=== PATIENT | male | born 1945 | race Caucasian/White ===

== ENCOUNTER → 2018-08-07 11:09 | Outpatient (BNVA) | payer MEDICARE, SELFPAY | PROVIDERS: PCP General Practice; Referring Provider General Practice; Visit Provider Orthopaedic Surgery | DX: M25.531 Pain in right wrist (principal); M19.031 Primary osteoarthritis, right wrist; M25.532 Pain in left wrist; M19.032 Primary osteoarthritis, left wrist | CPT/HCPCS: 99201; 99203 ==

== ENCOUNTER 2018-11-07 09:01 | Outpatient (REF) | payer OTHER, SELFPAY ==
[2018-11-07 13:28] LABS: Bilirubin Negative (Negative); Blood Negative (Negative); Clarity Clear; Glucose Negative (Negative); Ketones Negative (Negative); Leukocyte Esterase Negative (Negative); Nitrite Negative (Negative); Urobilinogen 0.2 EU/dL (Up TO 0.2)
[2018-11-07 13:35] LABS: Abs Immature Grans 0.01 k/cumm (0.0-0.09); Absolute Eosinophil Count 0.27 k/cumm (0.0-0.7); Absolute Lymphocyte Count 1.39 k/cumm (1.2-3.4); Absolute Monocyte Count 0.43 k/cumm (0.11-0.7); Absolute Neutrophil Count 3.11 k/cumm (1.2-6.7); Eosinophils % 5.2; HCT 44.8 % (40.0-50.0); HGB 14.7 g/dL (13.5-17.5); Immature Grans % 0.2; Lymphocytes % 26.7; Mean Corp. HGB Concentration 32.8 g/dL (32.0-36.0); Mean Corpuscular Hemoglobin 29.3 pg (27.0-33.0); Mean Corpuscular Volume 89.2 fL (80-95); Mean Platelet Volume 11.8 fL (8.0-11.0); Monocytes % 8.3; Neutrophils % 59.6; Platelet Count 166 x1000/uL (130-400); RBC 5.02 m/cumm (4.50-6.00); RBC Distribution Width 13.1 % (11.8-14.1); White Blood Cell Count 5.21 k/cumm (4.4-10.8)
[2018-11-07 14:04] LABS: ALT 33 U/L (12-78); AST 22 U/L (15-37); Albumin 3.9 g/dL (3.4-5.0); Alkaline Phosphatase 75 U/L (46-116); Anion Gap 9.4 mmol/L (3-11); BUN 18 mg/dL (7-18); Bilirubin, Total 0.7 mg/dL (0.2-1.0); CO2 26.6 mmol/L (21.0-32.0); CREATININE 1.19 mg/dL (0.70-1.30); Calcium 9.4 mg/dL (8.5-10.1); Chloride 105 mmol/L (98-107); Cholesterol 167 mg/dL (50-200); Glucose 107 mg/dL (70-100); HDL Cholesterol 50 mg/dL (40-60); LDL CHOLESTEROL 97 mg/dL (<100); Potassium 4.1 mmol/L (3.5-5.1); Sodium 141 mmol/L (136-145); TSH (W/Ref FT4) 0.24 uIU/mL (0.358-3.74); Triglyceride 134 mg/dL (30-150)
[2018-11-07 14:20] LABS: FREE T4 1.56 ng/dL (0.76-1.46); Uric Acid 5.5 mg/dL (3.5-7.2)
== END 2018-11-07 09:21 ==
LOC: NCHCN 09:01
PROVIDERS: PCP General Practice; Visit Provider Nurse Practitioner Family
DX: C73 Malignant neoplasm of thyroid gland (principal); C64.9 Malignant neoplasm of unspecified kidney, except renal pelvis; E03.9 Hypothyroidism, unspecified; E79.0 Hyperuricemia without signs of inflammatory arthritis and tophaceous disease; E21.3 Hyperparathyroidism, unspecified; E78.5 Hyperlipidemia, unspecified
CPT/HCPCS: 80053; 80061; 83721; 81003; 84439; 84443; 84550; 85025

== ENCOUNTER 2019-08-05 07:47 | Inpatient (IN) | payer OTHER, SELFPAY ==
[2019-08-05] VITALS (108 sets, daily range): BP systolic 105–152; BP diastolic 62–90; PULSE 48–109; RESP 10–27; TEMP 36.7–36.9; O2SAT 91–99
--- NOTE | 2019-08-05 07:59 | DI.RAD_ITS ---
EXAM: XR CHEST 2V PA LATERAL INDICATION: stroke like symptoms. COMPARISON: No exams were available for comparison TECHNIQUE: 2D digital imaging was performed. FINDINGS: The heart size and pulmonary vasculature are within normal limits. The lungs are clear. No effusion or pneumothorax is identified. There are calcified granulomas in the left upper lobe. Age-appropri ate degenerative changes are present in the spine. IMPRESSION: No acute pulmonary process.
--- NOTE | 2019-08-05 08:00 | NUR.NOTE ---
Nursing Note: pt to CT scan with RN
--- NOTE | 2019-08-05 08:03 | W.ED.GENAD ---
Discharge Plan Disposition Patient Disposition: [facility] INPATIENT Condition: Good Discharge Details Chief Complaint: CVA/TIA Clinical Impression: Stroke, Facial droop, Expressive aphasia Primary Care Provider: Tracey Chapin ED Provider: Sabino Esparza Home Meds and New Rx's Prescriptions: No Action allopurinol 100 mg tablet 100 mg PO BID RF: 0 levothyroxine [Synthroid] 25 mcg tablet 25 mcg PO DAILY RF: 0 aspirin [Adult Aspirin Regimen] 81 mg tablet,delayed release (DR/EC) 81 mg PO DAILY RF: 0 multivitamin [Daily Multi-Vitamin] tablet 1 tab PO DAILY RF: 0 simvastatin 20 mg tablet 20 mg PO QPM RF: 0 vit D3-folic dqdt-[id number]-B12 2,000-800-0.32 unit-mcg-mg Tablet 1 tab PO DAILY RF: 0 Medical Decision Making This is a very pleasant 73-year-old male with a past medical history of high cholesterol, kidney cancer with nephrectomy, thyroid cancer with thyroidectomy, who presents today for evaluation of difficulty finding words. Patient went to bed at 11 PM, woke up at 6:20 AM, at which point he noted to have word finding difficulty. Last known well would be 11 PM. Aside for his word finding difficulty he has no other complaints. Physical exam demonstrates relatively benign exam aside for very minimal right-sided facial droop, forehead sparing. Mild expressive aphasia, he is certainly not at his baseline and has confirmed by who is at bedside. The remainder of his exam is unremarkable, NIH stroke scale score is 2. He is not a TPA candidate secondary to the unknown last known well aside for 11 PM. Signs and symptoms are certainly concerning for intracranial pathology. Inconsistent with subarachnoid hemorrhage as he demonstrates no nuchal rigidity, meningismus, or headache. He is not on any blood thinners. We will get a CT scan to rule out acute infarct, secondary to his nephrectomy we will wait for labs to perform CTA of his head neck. Patient was given 2 aspirin by his prior to arrival. 8:[address] scan results have returned and per virtual radiology there is no evidence of acute bleed or infarct on CT scan. Chest x-ray findings are unremarkable. Of note the patient does state that he has a contrast allergy, it causes itching, and some mild stomach upset but no rash, throat swelling, or other abnormalities. Contrast dose was over 10 years ago, and per patient history appears to be 19 to 20 years ago. Suspect that it was related to osmolarity rather than true allergy. Additionally his symptoms were not anaphylactic. Thankfully though MRI is available at this time. We will do an MRI and MRA of the head neck for further assessment. 11:30 AM MRI and MRA of the brain and neck demonstrates evidence of a small area of restricted diffusion left parietal lobe consistent with an acute versus subacute infarct. No evidence of bleed. We contacted [facility] and have no beds available and have no additional neurology recommendations. Patient symptoms are minimally improved, however still certainly present. I did discuss with family staying locally versus going elsewhere, and at this time they would like to stay locally. I have contacted the hospitalist and discussed the case with Dr. Carbajal, and he agrees with the assessment and plan. Patient will be admitted for echo, neurology consult, and physical therapy. I have extensively reviewed the treatment plan with the patient. I have addressed all patient concerns at this time. I have also discussed the plan with the admitting physician and they agree with the current assessment and plan and have agreed to assume responsibility for the patient. All parties demonstrate verbal understanding and agreement with our assessment and plan at this time. EKG 7: 59 Rate 68, intervals normal, sinus rhythm, no significant ST elevation or depression, no T wave inversion, no evidence of WPW, Brugada, epsilon wave, or Wellens syndrome. COMPARISON: No relevant prior studies available. FINDINGS: Lungs: Left upper lobe granuloma Pleural space: Unremarkable. No pleural effusion. No pneumothorax. Heart/Mediastinum: Unremarkable. No cardiomegaly. Bones/joints: Unremarkable. IMPRESSION: No acute findings Dictated and Authenticated by: Bryan Valles MD. Ordering:PARVEEN Gallo MD FINDINGS: Brain: Normal. No hemorrhage. Unremarkable white matter. No mass effect. Ventricles: Normal. No ventriculomegaly. Bones/joints: Unremarkable. No acute fracture. Sinuses: Visualized sinuses are unremarkable. No fluid levels. Mastoid air cells: Visualized mastoid air cells are well aerated. Soft tissues: Unremarkable. IMPRESSION: No acute intracranial abnormality. ASSESSMENT: ASPECTS ([place] Stroke Program Early CT Score) is 10 FINDINGS: Carotid Arteries: Petrous: Normal. Cavernous: Normal. Cerebral: Normal. Middle Cerebral Arteries: Right: No aneurysm or significant stenosis. Left: No aneurysm or significant stenosis. Anterior Cerebral Arteries: Right: No aneurysm or significant stenosis. Left: No aneurysm or significant stenosis. Posterior cerebral arteries: Right: No aneurysm or significant stenosis. Left: No aneurysm or significant stenosis. Vertebral Arteries: Right: No aneurysm or significant stenosis. Left: No aneurysm or significant stenosis. . Basilar Artery: No aneurysm or significant stenosis. IMPRESSION: Normal MRA examination of the [place]. Ordered By: Sabino Esparza DO FINDINGS: The ventricles and sulci are consistent with the patient's age. There are areas of hyperintense signal seen in the white matter consistent with small vessel ischemic disease. The gradient images show no evidence of intracranial hemorrhage. The diffusion-weighted images show a small area of restricted diffusion in the left parietal lobe. This is consistent with a small acute/subacute infarct. There is no midline shift or mass effect. The ventricles are intact. The basilar cisterns are patent. The pituitary gland has a normal appearance. IMPRESSION: Small area of restricted diffusion in the left parietal lobe consistent with an acute/subacute infarct. Ordered By: Sabino Esparza DO HPI General Date/Time Provider Initiated Documentation: 08/05/19 07:57. HPI Narrative: This is a 73-year-old male with a past medical history of renal cancer with nephrectomy, thyroid cancer with thyroidectomy, gout, high cholesterol, who presents today for evaluation of difficulty speaking. Patient states that when he woke up at 620 this morning when he first started speaking he noticed a significantly difficult time finding his words. He and his denied any slurring of his speech. He denies any recent falls or trauma. He denies any headache, neck pain, fever, chills, chest pain, shortness of breath, visual changes, numbness, tingling, dizziness, or weakness. He denies any history of stroke or DE. He has never had symptoms like this before. Accu-Chek is normal. He went to bed at 11 PM and was acting normally then. He denies any other complaints at this time. No other modifying factors. Related Data Home Medications Medication Instructions Recorded Confirmed allopurinol 100 mg tablet 100 mg PO BID 08/07/18 08/05/19 aspirin 81 mg tablet,delayed 81 mg PO DAILY 08/07/18 08/05/19 release levothyroxine 25 mcg tablet 25 mcg PO DAILY 08/07/18 08/05/19 multivitamin 1 tab PO DAILY 08/07/18 08/05/19 simvastatin 20 mg tablet 20 mg PO QPM 08/07/18 08/05/19 vit D3-folic qozu-W1-J3-B12 1 tab PO DAILY 08/05/19 08/05/19 Allergies Allergy/AdvReac Type Severity Reaction Status Date / Time zolpidem [From Ambien] Allergy Mild Psychosis Unverified 08/05/19 08:51 Iodinated Contrast Media Allergy Itching Unverified 08/05/19 08:51 codeine AdvReac Mild Nausea Unverified 08/05/19 08:51 General Stated Complaint: CVA/TIA CHUYITA: 2 Review of Systems Review of Systems ROS Unobtainable: All systems reviewed & are unremarkable except as noted in HPI and below PFSH Social History Smoking/Tobacco Use Status: Never Alcohol Intake: former Drug use: Never Substance use type: does not use Do you feel safe at home: Yes Do you feel safe in your relationship?: Yes Exam Narrative Exam Narrative: 1.Const: Well-nourished, Well-developed, appearing stated age 2.Eyes: PERRL, no conjunctival injection, and symmetrical lids. 3.ENT: Atraumatic external nose and ears. Moist MM. Neck: Symmetric, trachea midline, No thyromegaly. 4.CVS: +S1/S2, No murmurs or gallops. Peripheral pulses 2+ and equal in all extremities. Brisk capillary refill in all extremities. 5.RESP: Unlabored respiratory effort. Clear to auscultation bilaterally. No wheezes rales or rhonchi 6.GI: Soft, Nontender/Nondistended, No hepatosplenomegaly. No guarding or rebound. 7.MSK: Normocephalic/Atraumatic, Extremities w/o deformity or ttp No cyanosis or clubbing, Normal movement of all extremities 8.Skin: Warm, Dry. No rashes or lesions. 9.Neuro: Cranial nerve exam demonstrates slight minimal right-sided facial droop, forehead sparing. All 6 cardinal planes of vision are fully intact. No evidence of rotatory or vertical nystagmus. The patient demonstrated a normal [id number]-hwhr-illcki, good dexterity. There was no evidence of dysdiadochokinesia. Patient was able to ambulate without difficulty. There was no wide-based gait. Romberg, and bpbd-rs-hgun are both normal on testing. Sensation was intact bilaterally as well as muscle strength bilaterally for all extremities. Patient was able to verbalize butter cup with some difficulty and he was unable to enunciate the hard consonants. Speech is certainly slowed as confirmed by his , he demonstrates no evidence of word salad. Patient is able to hold bilateral arms up for 5 seconds and there is no pronator drift, patient also holds legs up for 10 seconds bilaterally without any drop, sensation intact to light touch in hands and feet bilaterally. 10.Psych: (AAO) x3. Appropriate mood and affect Course Vital Signs Vital signs: Vital Signs Temperature 36.7 C 08/05/19 07:51 Pulse 76 08/05/19 07:51 Respiratory Rate 16 08/05/19 07:51 Blood Pressure 152/81 H 08/05/19 07:51 Pulse Oximetry 98 08/05/19 07:51 Temperature 36.7 C 08/05/19 07:51 Pulse 76 08/05/19 07:51 Respiratory Rate 16 08/05/19 07:51 Blood Pressure 152/81 H 08/05/19 07:51 Blood Pressure Position Sitting 08/05/19 07:51 Pulse Oximetry 98 08/05/19 07:51
[2019-08-05 08:10] LABS: BE (Venous) 6.7 mmol/L (-3-3); HCO3 (Venous) 32 mmol/L (22-28); O2 Sat (Venous) 41 % (70-80); TCO2 (Venous) 28 mmol/L (22-29); pCO2 (Venous) 51 mm/Hg (34-47); pO2 (Venous) 24 mm/Hg (28-44)
--- NOTE | 2019-08-05 08:12 | DI.CT_ITS ---
EXAM: CT HEAD WO CLINICAL HISTORY: stroke like symptoms, R sided deficits w/ speech. TECHNIQUE: Imaging Protocol: Axial computed tomography images with coronal and sagittal reformatted images were created and reviewed COMPARISON: No exams were available for comparison FINDINGS: Ventricles and Extra axial spaces: Normal in size and morphology for the patient's age. Hemorrhage: None. Cerebral parenchyma: Subtle areas of decreased attenuation are present in the white matter most consi stent with small vessel ischemic disease. Midline shift: None. Brainstem/Cerebellum: Normal. Calvarium: Normal. Visualized Paranasal sinuses/Mastoids: Clear. IMPRESSION: No acute intracranial process. DATA REPOSITORY: All CT scans at this facility are submitted to the National Radiology Data Registry (NRDR) Dose Index Registry (DIR) with the [employer] (ACR). RADIATION OPTIMIZATION: All CT scans at this facility use at least one of these dose optimization te chniques: automated exposure control; mA and/or kV adjustment per patient size (includes targeted exa ms where dose is matched to clinical indication); or iterative reconstruction.
[2019-08-05 08:13] LABS: Absolute Eosinophil Count 0.31 k/cumm (0.0-0.7); Absolute Lymphocyte Count 1.52 k/cumm (1.2-3.4); Absolute Monocyte Count 0.49 k/cumm (0.11-0.7); Absolute Neutrophil Count 2.72 k/cumm (1.2-6.7); Eosinophils % 6.2; HCT 46.5 % (40.0-50.0); HGB 15.2 g/dL (13.5-17.5); Lymphocytes % 30.2; Mean Corp. HGB Concentration 32.7 g/dL (32.0-36.0); Mean Corpuscular Volume 88.7 fL (80-95); Mean Platelet Volume 11.4 fL (8.0-11.0); Monocytes % 9.7; Neutrophils % 53.9; Platelet Count 203 x1000/uL (130-400); RBC 5.24 m/cumm (4.50-6.00); RBC Distribution Width 13.6 % (11.8-14.1); White Blood Cell Count 5.04 k/cumm (4.4-10.8)
[2019-08-05 08:23] LABS: Bilirubin Negative (Negative); Blood Negative (Negative); Clarity Clear (Clear); Glucose Negative (Negative); Ketones Trace mg/dL (Negative); Leukocyte Esterase Negative (Negative); Nitrite Negative (Negative)
--- NOTE | 2019-08-05 08:26 | DI.VRAD_ITS ---
PROCEDURE INFORMATION: Exam: CT Head without contrast Exam date and time: 08/05/2019 8:12 AM Clinical history: 73 years old, male; Other: Stroke like symptoms, RT sided deficits w/ speech TECHNIQUE: Imaging protocol: Computed tomography of the head without contrast. Radiation optimization: All CT scans at this facility use at least one of these dose optimization techniques: automated exposure control; mA and/or kV adjustment per patient size (includes targeted exams where dose is matched to clinical indication); or iterative reconstruction. Other technique: STROKE PROTOCOL was implemented. COMPARISON: No relevant prior studies available. FINDINGS: Brain: Normal. No hemorrhage. Unremarkable white matter. No mass effect. Ventricles: Normal. No ventriculomegaly. Bones/joints: Unremarkable. No acute fracture. Sinuses: Visualized sinuses are unremarkable. No fluid levels. Mastoid air cells: Visualized mastoid air cells are well aerated. Soft tissues: Unremarkable. IMPRESSION: No acute intracranial abnormality. ASSESSMENT: ASPECTS ([place] Stroke Program Early CT Score) is 10. Dictated and Authenticated by: Bryan Valles MD. Ordering:PARVEEN Gallo MD
--- NOTE | 2019-08-05 08:26 | DI.VRAD_ITS ---
PROCEDURE INFORMATION: Exam: XR Chest, 2 Views Exam date and time: 08/05/2019 8:12 AM Clinical history: 73 years old, male; Other: Stroke like symptoms TECHNIQUE: Imaging protocol: XR of the chest Views: 2 views. COMPARISON: No relevant prior studies available. FINDINGS: Lungs: Left upper lobe granuloma Pleural space: Unremarkable. No pleural effusion. No pneumothorax. Heart/Mediastinum: Unremarkable. No cardiomegaly. Bones/joints: Unremarkable. IMPRESSION: No acute findings Dictated and Authenticated by: Bryan Valles MD. Ordering:PARVEEN Gallo MD
[2019-08-05 08:28] LABS: Ammonia < 10 umol/L (11-32); PTT Activated 25.1 sec (21.0-31.4); Prothrombin Time 10.5 sec (9.3-11.0)
[2019-08-05 08:35] LABS: Bacteria Negative HPF (Negative); C & S Indicated? No; Casts Negative LPF (Negative); Crystals Negative HPF (Negative); Epithelial Cells Negative HPF (Negative); Mucus Trace (Negative); RBC Negative (0-2); WBC 0-2 HPF (0-5)
[2019-08-05 08:36] LABS: ALT 28 U/L (16-63); AST 18 U/L (15-37); Albumin 4.1 g/dL (3.4-5.0); Alkaline Phosphatase 79 U/L (46-116); Anion Gap 7.7 mmol/L (3-11); BUN 20 mg/dL (7-18); Bilirubin, Total 0.7 mg/dL (0.2-1.0); CO2 29.3 mmol/L (21.0-32.0); CREATININE 1.63 mg/dL (0.70-1.30); Calcium 9.5 mg/dL (8.5-10.1); Chloride 104 mmol/L (98-107); Glucose 110 mg/dL (70-100); Potassium 4.6 mmol/L (3.5-5.1); Sodium 141 mmol/L (136-145); TSH (W/Ref FT4) 0.24 uIU/mL (0.36-3.74); Total Protein 7.6 g/dL (6.4-8.2)
[2019-08-05 08:40] LABS: Troponin I < 0.05 ng/mL (0.00-0.06)
[2019-08-05] MEDS: Normal Saline 500 ML 1000 ML IV (08:40)
--- NOTE | 2019-08-05 08:40 | DI.MRI_ITS ---
EXAM: MR ANGIO NECK WO CLINICAL HISTORY: stroke, right facial and speech deficits. TECHNIQUE: Multiplanar multisequence MRA of the Neck was performed. COMPARISON: No exams were available for comparison FINDINGS: Common Carotid: Right: Normal. Left: Normal. External Carotid: Right: Normal. Left: Normal. Internal Carotid: Right: Normal. Left: Normal. Vertebral Artery: Right: Normal. Left: Normal. The visualized paraspinal soft tissues are unremarkable. IMPRESSION: Normal MRA of the carotids.
--- NOTE | 2019-08-05 08:40 | DI.MRI_ITS ---
EXAM: MR BRAIN WO CLINICAL HISTORY: stroke, right facial and speech deficits. TECHNIQUE: Multiplanar multisequence MRI was performed. COMPARISON: CT HEAD WO from 08/05/2019 FINDINGS: The ventricles and sulci are consistent with the patient's age. There are areas of hyperintense sign al seen in the white matter consistent with small vessel ischemic disease. The gradient images show no evidence of intracranial hemorrhage. The diffusion-weighted images show a small area of restricte d diffusion in the left parietal lobe. This is consistent with a small acute/subacute infarct. Ther e is no midline shift or mass effect. The ventricles are intact. The basilar cisterns are patent. The pituitary gland has a normal appearance. IMPRESSION: Small area of restricted diffusion in the left parietal lobe consistent with an acute/subacute infarc t.
--- NOTE | 2019-08-05 08:40 | DI.MRI_ITS ---
CLINICAL HISTORY: stroke, right facial and speech deficits. TECHNIQUE: Multiplanar multisequence MRA of the brain was performed. IV Contrast: mL of Magnevist contrast administered. COMPARISON: None. FINDINGS: Carotid Arteries: Petrous: Normal. Cavernous: Normal. Cerebral: Normal. Middle Cerebral Arteries: Right: No aneurysm or significant stenosis. Left: No aneurysm or significant stenosis. Anterior Cerebral Arteries: Right: No aneurysm or significant stenosis. Left: No aneurysm or significant stenosis. Posterior cerebral arteries: Right: No aneurysm or significant stenosis. Left: No aneurysm or significant stenosis. Vertebral Arteries: Right: No aneurysm or significant stenosis. Left: No aneurysm or significant stenosis. . Basilar Artery: No aneurysm or significant stenosis. IMPRESSION: Normal MRA examination of the [place] of [place].
[2019-08-05 08:41] LABS: ETHANOL BLOOD < 3.0 mg/dL (<3)
[2019-08-05 09:19] LABS: FREE T4 1.53 ng/dL (0.76-1.46)
[2019-08-05] MEDS: Aspirin 81 MG CHEW (11:04)
--- NOTE | 2019-08-05 13:00 | DI.US_ITS ---
APPROVED REPORT EXAM: Comprehensive 2D, Doppler, and color-flow Echocardiogram Indications: acute CVA Left Ventricle The left ventricle is normal. Left ventricular systolic function is normal. The posterior wall thickn ess is normal. The septum is normal. There is normal LV segmental wall motion. Diastolic function is indeterminate LVEF is 65-70%. Right Ventricle The right ventricle is normal size. The right ventricular systolic function is normal. Atria The left atrium is mildly dilated. The right atrium size is normal. Aortic Valve Aortic valve is calcified. Aortic valve is trileaflet. No hemodynamically significant valvular aortic stenosis. No aortic regurgitation is present. Mitral Valve The mitral valve is normal in structure. Trace mitral regurgitation. Tricuspid Valve The tricuspid valve is normal in structure. Mild to moderate tricuspid regurgitation. TR V-max equals 2.93 m/s. peak gradient 34.4 mmHg Pulmonic Valve The pulmonary valve is normal in structure. There is no pulmonic valvular regurgitation. Great Vessels The aortic root is normal in size. The IVC is normal in size and collapses >50% with inspiration. Pericardium There is no pericardial effusion. 2D Dimensions IVSd 0.9 cm M: 0.6-1.2 PWd 0.9 cm M: 0.6 - 1.2 LVDd 4.6 cm M: 4.2 - 5.9 LVDs 3.0 cm M: 2.5 - 4.0 Aortic Root 3.0 cm M: 3.1 - 3.7 Left Atrium 4.1 cm M: 3.0 - 4.0 LVOT 2.0 cm (M/F) 1.5-2.5 LVEF (Alfredo's) 70.9 % M: 52 - 72 LV Volume Index 32.2 mL/m2 M: 34 - 74 FS 35.0 % LV Diastology E/A Ratio 0.9 MED E' 0.1 (<0.07 m/s) LV E/e MED 12.3 (>14) LAT E' 0.1 (<0.1 m/s) LV E/e LAT 7.0 (>14) Aortic Valve LVOT Peak Tawanda. 1.2 m/s LVOT Peak Gr. 6.0 mmHg LVOT Mean Gr. 3.3 mmHg LVOT VTI 0.3 m AO VTI 0.4 (0.18-0.25 m) ROGER (VTI) 1.1 (2.5-4.5 cm2) Mitral Valve MV A Velocity 0.9 (0.4-1.3 m/s) E/A Ratio 0.9 MV Decel. Time 257.1 (160-240 msec) MV PHT 74.6 msec MVA PHT 3.0 cm2 Tricuspid Valve TR P. Velocity 3.0 m/s TR P. Gradient 36.4 mmHg Conclusion Left Ventricle : The left ventricle is normal. The posterior wall thickness is normal. The septum is normal. Diastolic function is indeterminate Left ventricular systolic function is normal. There is no rmal LV segmental wall motion. LVEF is 65-70%. Right Ventricle : The right ventricle is normal size. The right ventricular systolic function is norm al. Atria : The left atrium is mildly dilated. The right atrium size is normal. Aortic Valve : Aortic valve is calcified. Aortic valve is trileaflet. No aortic regurgitation is pres ent. No hemodynamically significant valvular aortic stenosis. Mitral Valve : The mitral valve is normal in structure. Trace mitral regurgitation. Tricuspid Valve : The tricuspid valve is normal in structure. Mild to moderate tricuspid regurgitatio n. TR V-max equals 2.93 m/s. peak gradient 34.4 mmHg Great Vessels : The aortic root is normal in size. Pericardium : There is no pericardial effusion. There is no obvious cardiac source of emboli to explain CVA.
[2019-08-05] MEDS: Atorvastatin 40 MG TAB PO (15:10)
[2019-08-05] MEDS: Heparin 5,000 UNITS/ML VIAL 5000 UNITS SC (15:10)
[2019-08-05] MEDS: Pantoprazole 40 MG TABCR PO (15:10)
[2019-08-05] MEDS: Clopidogrel 300 MG TAB PO (15:12)
[2019-08-05] MEDS: Normal Saline 1,000 ML 125 ML IV ×2 (15:21→22:49)
--- NOTE | 2019-08-05 15:59 | NCONE_ITS ---
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 Continue with work-up including TTE, A1c, lipid panel, and telemetry. I also recommend 30-day cardiac event monitor at discharge. He should continue the combination of ASA 81mg daily and clopidogrel 75mg daily x30 days at which time he can discontinue aspirin and continue clopidogrel only. His simvastatin should be increase to 40mg HS for a goal LDL <70. Continue permissive hypertension. Unfortunately, we do not have ST services available at this time. He has no dysphagia at this time. We discussed outpatient ST, but given his small infarct, I suspect that he will recover quickly and completely. I will continue to follow along. History of Present Illness History of Present Illness Chief Complaint: stroke Narrative: Handedness: right. HPI: Mr. 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 He went to bed early around 8pm on 08/04/19 as he was unexpectedly tired. He woke up 1-2x during the night to use the bathroom but did not speak or notice anything wrong. When he awoke this am, he noted slurred speech (ER notes indicate aphasia, but he had no difficulty with word finding, fluency, or comprehension). He denies weakness, numbness, tingling, headache. He has no history of palpitations. He presented to the [facility] ER where he was also noted to have subtle right face weakness (this is chronic per viewing old pictures). His BP was slightly elevated at 152/81 (this is exceptionally high for him per his report). His symptoms were concerning for stroke. He was not a candidate for tPA as he was outside of the time window. He was admitted with the following work-up. He was already on aspirin and simvastatin at baseline. He was loaded with clopidogrel 300mg daily. -CTH: no acute. Mild chronic small vessel disease changes. I reviewed these images personally. -MRI brain w/o: acute/subacute small linear infarct in the high left posterior frontal cortex. Mild chronic small vessel disease changes. I reviewed these images personally. -MRA head/neck: atherosclerosis bilateral ICA R>L as well as in the R sigmoid sinus without any significant stenosis. I reviewed these images personally. -TTE: pending -Labs: A1c pending. LEL 97 (Nov 2018). Consults Requesting physician: Azeem Carbajal Review of Systems Review of Systems ROS Unobtainable: All systems reviewed & are unremarkable except as noted in HPI and below PFSH Medical History Dyslipidemia (Acute) Gout (Chronic) History of renal cell carcinoma (Acute) Hypothyroidism (Chronic) Single kidney (Acute) Thyroid ca (Acute) Surgical History History of thyroidectomy (Chronic) Status post nephrectomy (Acute) Family History Mother Stroke Social History Smoking/Tobacco Use Status: Never Alcohol Intake: former Drug use: Never Substance use type: does not use Do you feel safe at home: Yes Do you feel safe in your relationship?: Yes Additional Social history: with 5 children, all grown. 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 No history of tobacco, and admits to social alcohol use only. Visit Medication and Allergies Active Medications Generic Name Dose Route Start Last Admin Trade Name Freq PRN Reason Stop Dose Admin Acetaminophen 325 - 650 mg 08/05/19 11:50 Tylenol PO Q4H PRN PRN Al Hydrox/Mg Hydrox/Simethicone 30 ml 08/05/19 11:50 Mylanta Liquid PO Q2H PRN PRN Albuterol/Ipratropium 3 ml 08/05/19 11:50 Duoneb Updraft UPD Q6H PRN PRN Allopurinol 100 mg 08/05/19 20:00 Zyloprim PO BID PO Aspirin 81 mg 08/06/19 08:30 Ecotrin PO DAILY [facility] Atorvastatin Calcium 40 mg 08/05/19 12:00 08/05/19 15:10 Lipitor PO 40 mg Q24H [facility] Administration Clopidogrel Bisulfate 75 mg 08/06/19 12:00 Plavix PO Q24H [facility] Dimethicone/Zinc Oxide 0 gm 08/05/19 11:50 Jaiden Protect Cream TP PRN PRN Docusate Sodium 100 mg 08/05/19 11:50 Colace PO TID PRN PRN Heparin Sodium (Porcine) 5,000 units 08/05/19 12:00 08/05/19 15:10 SC 5,000 units Q8H [facility] Administration Sodium Chloride 1,000 mls @ 125 mls/hr 08/05/19 12:00 08/05/19 15:21 Saline 1000ml Bag IV 125 mls/hr INFUSION [facility] Administration Levothyroxine Sodium 25 mcg 08/06/19 06:00 Levothroid PO DAILY@0600 [facility] Magnesium Hydroxide 30 ml 08/05/19 11:50 Milk Of Magnesia PO DAILY PRN PRN Multivitamins 1 tab 08/06/19 08:30 PO DAILY [facility] Pantoprazole Sodium 40 mg 08/05/19 12:00 08/05/19 15:10 Protonix PO 40 mg Q24H PO Administration Pt's Own Vit D3- 1 each 08/06/19 08:30 Folic [id number] PO 1 Tab DAILY [facility] Polyethylene Glycol 17 gm 08/05/19 11:50 Miralax PO DAILY PRN PRN Constipation Allergies zolpidem [From Ambien] Allergy (Mild, Unverified 08/05/19 08:51) Psychosis Iodinated Contrast Media Allergy (Unverified 08/05/19 08:51) Itching codeine Adverse Reaction (Mild, Unverified 08/05/19 08:51) Nausea Exam Narrative Exam Narrative: Physical Exam: Gen: Patient of apparent stated age, NAD Head and face: no facial or cranial abnormalities Neck: Supple, no meningismus, no occipital tenderness CV: RRR Resp: CTA B/L Abd: soft, nontender, nondistended Ext: No edema. No clubbing or cyanosis. No bony deformity. Neuro Exam: Language: fluency, naming, repetition, and comprehension intact; Mental Status: AAOx3, current events intact, fund of knowledge intact; Speech: mild dysarthria Cranial nerves: Funduscopy: not performed CN II: visual youssef intact CN III, IV, : extraocular movements intact, no nystagmus, pupils symmetric and reactive to light CN V: face sensation intact to LT and PP CN VII: subtle right nasolabial fold flattening (this is old per previous pictures) CN VIII: hearing intact bilaterally CN IX, X: palate rises symmetrically CN XI: trapezius/SCM 5/5 bilaterally CN XII: protrudes tongue symmetrically Sensory: intact to LT, PP, and joint position in all extremities; absent vibration in the toes and reduced below the knees bilaterally; Motor: bulk and tone intact. Fine motor movements intact bilaterally. No pronator drift. Strength 5/5 throughout including the deltoids, biceps, triceps, wrist extensors, hip flexors, knee flexors, knee extensors, ankle flexors, and ankle extensors. Reflexes: 2+ at the biceps, triceps, and brachioradialis; absent at the patella and achilles tendons bilaterally; toes neutral bilaterally; Coordination: FTN and HTS intact bilaterally Gait: not performed Results Last Vital Signs Temp 36.8 C 08/05/19 13:09 Pulse 59 L 08/05/19 13:09 Resp 16 08/05/19 13:09 BP 124/72 08/05/19 13:09 Pulse Ox 99 08/05/19 13:09 Labs Result diagrams: 08/05/19 08:00 08/05/19 08:00 Labs: Laboratory Results - last 24 hr 08/05/19 08/05/19 08/05/19 08:00 08:00 08:00 WBC 5.04 RBC 5.24 Hgb 15.2 Hct 46.5 MCV 88.7 MCH 29.0 MCHC 32.7 RDW 13.6 Plt Count 203 MPV 11.4 H Immature Gran % 0.0 Neutrophils % 53.9 Lymphocytes % 30.2 Monocytes % 9.7 Eosinophils % 6.2 Basophils % 0.0 Absolute Neutrophils 2.72 Absolute Lymphocytes 1.52 Absolute Monocytes 0.49 Absolute Eosinophils 0.31 Absolute Basophils 0.00 PT INR APTT VBG pH VBG pCO2 VBG pO2 VBG HCO3 VBG Total CO2 VBG O2 Saturation VBG Base Excess Sodium 141 Potassium 4.6 Chloride 104 Carbon Dioxide 29.3 Anion Gap 7.7 BUN 20 H Creatinine 1.63 H Estimated GFR/1.73 m2 41.80 Glucose 110 H Calcium 9.5 Total Bilirubin 0.7 AST 18 ALT 28 Alkaline Phosphatase 79 Ammonia < 10 L Troponin I < 0.05 Total Protein 7.6 Albumin 4.1 TSH 0.24 L Free T4 1.53 H Urine Color Urine Clarity Urine pH Ur Specific [place] Urine Protein Urine Ketones Urine Blood Urine Nitrite Urine Bilirubin Urine Urobilinogen Ur Leukocyte Esterase Urine RBC Urine WBC Ur Epithelial Cells Urine Crystals Urine Bacteria Urine Casts Urine Mucus Ur Culture Indicated? Urine Glucose Ethyl Alcohol < 3.0 08/05/19 08/05/19 08/05/19 08:00 08:00 08:18 WBC RBC Hgb Hct MCV MCH MCHC RDW Plt Count MPV Immature Gran % Neutrophils % Lymphocytes % Monocytes % Eosinophils % Basophils % Absolute Neutrophils Absolute Lymphocytes Absolute Monocytes Absolute Eosinophils Absolute Basophils PT 10.5 INR 1.0 APTT 25.1 VBG pH 7.40 VBG pCO2 51 H VBG pO2 24 L VBG HCO3 32 H VBG Total CO2 28 VBG O2 Saturation 41 L VBG Base Excess 6.7 H Sodium Potassium Chloride Carbon Dioxide Anion Gap BUN Creatinine Estimated GFR/1.73 m2 Glucose Calcium Total Bilirubin AST ALT Alkaline Phosphatase Ammonia Troponin I Total Protein Albumin TSH Free T4 Urine Color Yellow Urine Clarity Clear Urine pH 7.0 Ur Specific [place] 1.020 Urine Protein Trace H Urine Ketones Trace H Urine Blood Negative Urine Nitrite Negative Urine Bilirubin Negative Urine Urobilinogen 1.0 H Ur Leukocyte Esterase Negative Urine RBC Negative Urine WBC 0-2 Ur Epithelial Cells Negative Urine Crystals Negative Urine Bacteria Negative Urine Casts Negative Urine Mucus Trace Ur Culture Indicated? No Urine Glucose Negative Ethyl Alcohol
--- NOTE | 2019-08-05 16:13 | W.PM.HP.N ---
Date of service: 08/05/19 Time of Service: 16:14 Assessment and Plan Assessment and plan (1) CVA (cerebral vascular accident): Status: Chronic Assessment and plan: Evidence of an acute to subacute left parietal lobe infarct, exact duration of symptoms is unknown as the patient was asleep - due to the unknown duration of symptoms thrombolytics were not considered. -Patient was on daily aspirin. Following discussion with neurology will initiate a Plavix load, with plans for DAPT over the course of the next 30 days followed by transition to clopidogrel only. Given need for dual antiplatelet therapy concurrent PPI was started for GI protection. Will conclude work-up with echo and telemetry, and consider outpatient Holter monitoring as well. Official neurology consult has been placed and pending at this time. Will check a.m. hemoglobin A1c and fasting lipids, and change to a high potency statin as well. Aim for permissive hypertension overnight, as the patient's blood pressure normally runs relatively low will start on some IV fluid resuscitation. Monitor symptoms closely. (2) Dyslipidemia: Status: Acute Assessment and plan: Change simvastatin to high-dose atorvastatin, check a.m. labs. (3) HANNAH (acute kidney injury): Status: Acute Assessment and plan: Elevated BUN and creatinine. As above will try IV fluid resuscitation and monitor renal function carefully as the patient has a single kidney status. (4) Single kidney: Status: Acute Assessment and plan: As above. Monitor renal function carefully, avoid nephrotoxins, and renally dose medications when appropriate. (5) Hypothyroidism: Status: Chronic Assessment and plan: Currently on replacement therapy, with mildly low TSH and mildly free T4. Mr. Ortiz has a history of thyroid cancer, status post thyroidectomy. Unsure if this mildly low TSH is a purposeful attempt at suppressive therapy. Will review records in the morning. For now continue current dose of replacement therapy. (6) DVT prophylaxis: Status: Acute Assessment and plan: SC Lovenox, PPI for GI prophylaxis as above. History of Present Illness History of Present Illness Chief Complaint: Difficulty Speaking Narrative: Very pleasant 73-year-old man with a past medical history significant for dyslipidemia, being admitted from [facility] emergency department on 08/05 with a diagnosis of acute to subacute CVA. Mr. Luciano has past medical history significant for dyslipidemia, gout, single kidney status secondary to prior renal cell CA s/p nephrectomy, and thyroid CA s/p thyroidectomy with subsequent hypothyroidism on replacement therapy. The patient is originally from [place], and having lived in [place] for a number of years with summer locally in [place], and has moved here permanently with his spouse. The patient is quite active and reportedly a non-smoker, and went to bed at approximately 11 PM last night in his usual state of health. Upon awakening this morning he noted that he was having difficulty with speaking. He is able to articulate and answer questions appropriately, but he is subjectively significantly less fluent than his baseline, and has difficulty speaking the words that he is thinking. According to his he first reported that he felt like his 'tongue had thickened'. He had no other complaints, and no other focal deficits. Initial work-up in the ED was remarkable for mild elevation in creatinine from his baseline, as well as a mild elevation in BUN. Otherwise his CBC, remainder of BMP, LFTs, and urinalysis were normal. Chest x-ray and initial CT of the head were both without acute abnormalities, but with a follow-up MRI of the brain showing a small area of restricted diffusion in the left parietal lobe, with findings consistent with an acute/subacute infarct. MRI of his brain was normal. The patient was at that time referred for admission for further evaluation and treatment. Review of Systems Review of Systems ROS Unobtainable: All systems reviewed & are unremarkable except as noted in HPI and below [facility] Medical History (Updated 08/05/19 @ 16:31 by Azeem Carbajal MD) Dyslipidemia (Acute) Gout (Chronic) History of renal cell carcinoma (Acute) Hypothyroidism (Chronic) Single kidney (Acute) Status post nephrectomy (Acute) Thyroid ca (Acute) Surgical History (Updated 08/05/19 @ 16:22 by Azeem Carbajal MD) History of thyroidectomy (Chronic) Social History (Updated 08/05/19 @ 16:23 by Azeem Carbajal MD) Smoking/Tobacco Use Status: Never Alcohol Intake: former Drug use: Never Substance use type: does not use Do you feel safe at home: Yes Do you feel safe in your relationship?: Yes Additional Social history: with 5 children, all grown. 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 No history of tobacco, and admits to social alcohol use only. Meds Home Medications and Allergies Home Medications Medication Instructions Recorded Confirmed Type allopurinol 100 mg tablet 100 mg PO BID 08/07/18 08/05/19 History aspirin 81 mg tablet,delayed 81 mg PO DAILY 08/07/18 08/05/19 History release levothyroxine 25 mcg tablet 25 mcg PO DAILY 08/07/18 08/05/19 History multivitamin 1 tab PO DAILY 08/07/18 08/05/19 History simvastatin 20 mg tablet 20 mg PO QPM 08/07/18 08/05/19 History vit D3-folic [id number] 1 tab PO DAILY 08/05/19 08/05/19 History Allergies Allergy/AdvReac Type Severity Reaction Status Date / Time zolpidem [From Ambien] Allergy Mild Psychosis Unverified 08/05/19 08:51 Iodinated Contrast Media Allergy Itching Unverified 08/05/19 08:51 codeine AdvReac Mild Nausea Unverified 08/05/19 08:51 Exam Narrative Exam Narrative: General: Patient appears comfortable, AAOX3, NAD Neck: Supple CV: Regular, nontachycardic, S1S2, No rubs, murmurs, or gallops. Pulmonary: Clear to auscultation bilaterally, no crackles, wheezing, or rhonchi Abdomen: + Bowel Sounds, soft, nontender, nondistended Vascular: No lower extremity edema Neurologic: Speech is slightly slow, but not garbled or incoherent. CN II-XII grossly intact. Strength 5/5 X4. Sensation grossloy intact. No focal deficits. Psych: Normal mood and affect. Results Imaging Chest x-ray: report reviewed Additional studies: Exam(s) a RAD:XR chest 2V PA & lateral EXAM: XR CHEST 2V PA LATERAL INDICATION: stroke like symptoms. COMPARISON: No exams were available for comparison TECHNIQUE: 2D digital imaging was performed. FINDINGS: The heart size and pulmonary vasculature are within normal limits. The lungs are clear. No effusion or pneumothorax is identified. There are calcified granulomas in the left upper lobe. Age-appropriate degenerative changes are present in the spine. IMPRESSION: No acute pulmonary process. -------- Exam(s) a CT:CT head wo EXAM: CT HEAD WO CLINICAL HISTORY: stroke like symptoms, R sided deficits w/ speech. TECHNIQUE: Imaging Protocol: Axial computed tomography images with coronal and sagittal reformatted images were created and reviewed COMPARISON: No exams were available for comparison FINDINGS: Ventricles and Extra axial spaces: Normal in size and morphology for the patient's age. Hemorrhage: None. Cerebral parenchyma: Subtle areas of decreased attenuation are present in the white matter most consistent with small vessel ischemic disease. Midline shift: None. Brainstem/Cerebellum: Normal. Calvarium: Normal. Visualized Paranasal sinuses/Mastoids: Clear. IMPRESSION: No acute intracranial process. -------- Exam(s) a MRI:MR brain wo EXAM: MR BRAIN WO CLINICAL HISTORY: stroke, right facial and speech deficits. TECHNIQUE: Multiplanar multisequence MRI was performed. COMPARISON: CT HEAD WO from 08/05/2019 FINDINGS: The ventricles and sulci are consistent with the patient's age. There are areas of hyperintense signal seen in the white matter consistent with small vessel ischemic disease. The gradient images show no evidence of intracranial hemorrhage. The diffusion-weighted images show a small area of restricted diffusion in the left parietal lobe. This is consistent with a small acute/subacute infarct. There is no midline shift or mass effect. The ventricles are intact. The basilar cisterns are patent. The pituitary gland has a normal appearance. IMPRESSION: Small area of restricted diffusion in the left parietal lobe consistent with an acute/subacute infarct. ------ Exam(s) a MRI:MR angio brain wo CLINICAL HISTORY: stroke, right facial and speech deficits. TECHNIQUE: Multiplanar multisequence MRA of the brain was performed. IV Contrast: mL of Magnevist contrast administered. COMPARISON: None. FINDINGS: Carotid Arteries: Petrous: Normal. Cavernous: Normal. Cerebral: Normal. Middle Cerebral Arteries: Right: No aneurysm or significant stenosis. Left: No aneurysm or significant stenosis. Anterior Cerebral Arteries: Right: No aneurysm or significant stenosis. Left: No aneurysm or significant stenosis. Posterior cerebral arteries: Right: No aneurysm or significant stenosis. Left: No aneurysm or significant stenosis. Vertebral Arteries: Right: No aneurysm or significant stenosis. Left: No aneurysm or significant stenosis. . Basilar Artery: No aneurysm or significant stenosis. -------- IMPRESSION: Normal MRA examination of the [place] of [place]. Exam(s) a MRI:MR angio neck wo EXAM: MR ANGIO NECK WO CLINICAL HISTORY: stroke, right facial and speech deficits. TECHNIQUE: Multiplanar multisequence MRA of the Neck was performed. COMPARISON: No exams were available for comparison FINDINGS: Common Carotid: Right: Normal. Left: Normal. External Carotid: Right: Normal. Left: Normal. Internal Carotid: Right: Normal. Left: Normal. Vertebral Artery: Right: Normal. Left: Normal. The visualized paraspinal soft tissues are unremarkable. IMPRESSION: Normal MRA of the carotids. Labs Result diagrams: 08/05/19 08:00 08/05/19 08:00 Labs: Laboratory Results - last 24 hr 08/05/19 08/05/19 08/05/19 08:00 08:00 08:00 WBC 5.04 RBC 5.24 Hgb 15.2 Hct 46.5 MCV 88.7 MCH 29.0 MCHC 32.7 RDW 13.6 Plt Count 203 MPV 11.4 H Immature Gran % 0.0 Neutrophils % 53.9 Lymphocytes % 30.2 Monocytes % 9.7 Eosinophils % 6.2 Basophils % 0.0 Absolute Neutrophils 2.72 Absolute Lymphocytes 1.52 Absolute Monocytes 0.49 Absolute Eosinophils 0.31 Absolute Basophils 0.00 PT INR APTT VBG pH VBG pCO2 VBG pO2 VBG HCO3 VBG Total CO2 VBG O2 Saturation VBG Base Excess Sodium 141 Potassium 4.6 Chloride 104 Carbon Dioxide 29.3 Anion Gap 7.7 BUN 20 H Creatinine 1.63 H Estimated GFR/1.73 m2 41.80 Glucose 110 H Calcium 9.5 Total Bilirubin 0.7 AST 18 ALT 28 Alkaline Phosphatase 79 Ammonia < 10 L Troponin I < 0.05 Total Protein 7.6 Albumin 4.1 TSH 0.24 L Free T4 1.53 H Urine Color Urine Clarity Urine pH Ur Specific [place] Urine Protein Urine Ketones Urine Blood Urine Nitrite Urine Bilirubin Urine Urobilinogen Ur Leukocyte Esterase Urine RBC Urine WBC Ur Epithelial Cells Urine Crystals Urine Bacteria Urine Casts Urine Mucus Ur Culture Indicated? Urine Glucose Ethyl Alcohol < 3.0 08/05/19 08/05/19 08/05/19 08:00 08:00 08:18 WBC RBC Hgb Hct MCV MCH MCHC RDW Plt Count MPV Immature Gran % Neutrophils % Lymphocytes % Monocytes % Eosinophils % Basophils % Absolute Neutrophils Absolute Lymphocytes Absolute Monocytes Absolute Eosinophils Absolute Basophils PT 10.5 INR 1.0 APTT 25.1 VBG pH 7.40 VBG pCO2 51 H VBG pO2 24 L VBG HCO3 32 H VBG Total CO2 28 VBG O2 Saturation 41 L VBG Base Excess 6.7 H Sodium Potassium Chloride Carbon Dioxide Anion Gap BUN Creatinine Estimated GFR/1.73 m2 Glucose Calcium Total Bilirubin AST ALT Alkaline Phosphatase Ammonia Troponin I Total Protein Albumin TSH Free T4 Urine Color Yellow Urine Clarity Clear Urine pH 7.0 Ur Specific [place] 1.020 Urine Protein Trace H Urine Ketones Trace H Urine Blood Negative Urine Nitrite Negative Urine Bilirubin Negative Urine Urobilinogen 1.0 H Ur Leukocyte Esterase Negative Urine RBC Negative Urine WBC 0-2 Ur Epithelial Cells Negative Urine Crystals Negative Urine Bacteria Negative Urine Casts Negative Urine Mucus Trace Ur Culture Indicated? No Urine Glucose Negative Ethyl Alcohol Last Vital Signs Temp 36.8 C 08/05/19 13:09 Pulse 59 L 08/05/19 13:09 Resp 16 08/05/19 13:09 BP 124/72 08/05/19 13:09 Pulse Ox 99 08/05/19 13:09
[2019-08-06] VITALS (49 sets, daily range): BP systolic 111–146; BP diastolic 51–75; PULSE 53–110; RESP 10–38; TEMP 36.9; O2SAT 94–98
[2019-08-06] MEDS: Heparin 5,000 UNITS/ML VIAL 5000 UNITS SC ×2 (01:08→08:29)
[2019-08-06] MEDS: Levothyroxine 25 MCG TAB PO (06:21)
[2019-08-06] MEDS: Normal Saline 1,000 ML 125 ML IV (06:28)
--- NOTE | 2019-08-06 06:37 | NUR.NOTE ---
Addendum entered by Dennis Sexton 08/06/19 06:42: Pt also told me that he had been using his call gonzalez multiple times throughout the night, and that he heard it beeping, but no one ever came. I apologized to the patient and tested the gonzalez and found it to be working, I showed the pt that it needs to be manually turned off at the wall in his room, and that neither myself nor the other RN working heard the gonzalez or saw the light blinking. Original Note: Pt very upset that we do not carry synthroid, also very upset that his dose is incorrect. I explained the confirmation process that happens in the ER for medications, and that we have a verified dose of 25mcg on file. He states that his dose should be 125mcg. I told the pt he did not have to take the 25mcg of levothyroxine, but he took it anyway. He is not happy and states that he will get to the bottom of this, starting from the top. Nursing Note:
[2019-08-06 07:16] LABS: Absolute Eosinophil Count 0.22 k/cumm (0.0-0.7); Absolute Lymphocyte Count 1.25 k/cumm (1.2-3.4); Absolute Monocyte Count 0.38 k/cumm (0.11-0.7); Absolute Neutrophil Count 1.62 k/cumm (1.2-6.7); Eosinophils % 6.3; HCT 42.2 % (40.0-50.0); HGB 13.6 g/dL (13.5-17.5); Mean Corp. HGB Concentration 32.2 g/dL (32.0-36.0); Mean Corpuscular Hemoglobin 28.8 pg (27.0-33.0); Mean Corpuscular Volume 89.2 fL (80-95); Mean Platelet Volume 11.8 fL (8.0-11.0); Neutrophils % 46.7; Platelet Count 186 x1000/uL (130-400); RBC 4.73 m/cumm (4.50-6.00); RBC Distribution Width 13.8 % (11.8-14.1); White Blood Cell Count 3.47 k/cumm (4.4-10.8)
[2019-08-06 07:32] LABS: Anion Gap 6.5 mmol/L (3-11); BUN 17 mg/dL (7-18); CO2 28.5 mmol/L (21.0-32.0); CREATININE 1.17 mg/dL (0.70-1.30); Calcium 8.4 mg/dL (8.5-10.1); Calculated LDL 80 mg/dL; Chloride 107 mmol/L (98-107); Cholesterol 136 mg/dL (50-200); Glucose 94 mg/dL (70-100); HDL Cholesterol 41 mg/dL (40-60); Magnesium 1.8 mg/dL (1.8-2.4); Potassium 4.1 mmol/L (3.5-5.1); Sodium 142 mmol/L (136-145); Triglyceride 77 mg/dL (30-150)
[2019-08-06 07:52] LABS: Hemoglobin A1C 5.9 % (4.5-6.2)
--- NOTE | 2019-08-06 08:24 | PGE_ITS ---
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 -TTE and A1c still pending. Needs 30 day cardiac event monitoring at discharge. -needs inpatient/outpatient ST eval for dysphagia pending availability (I discussed precautions with him and use of thick-it) -continue ASA 81mg + Plavix 75mg daily x 1month, then Plavix only -ok to d/c on simvastatin 20mg HS based on excellent LDL -he should follow-up in clinic in mid/late September after his travels Addendum: TTE with mildly dilated LA. A1c 5.9. No changes to above plan. Subjective Subjective Interval history since last seen: Stable overnight. Speech improved this am. thinks back to baseline, but Mr. Middleton still notes some difficulty. He noted difficulty swallowing liquids last pm. No problems with solids. Exam Narrative Exam Narrative: Physical Exam: Constitutional: Patient of apparent stated age, well nourished, well developed, no acute distress Neuro: MS/Language/Speech: Alert, oriented, clear language (fluency and comprehension), mild dysarthria; mild hypophonia (baseline) CN: EOMI, visual youssef full, trigeminal sensation intact, subtle R nasolabial fold flattening (chronic), hearing intact Motor: Normal bulk and tone. FMM intact, no pronator drift. Sensation: Intact to light touch throughout Coordination: Finger to nose performed without dysmetria Gait: Deferred Objective Objective Clinical Data: Abnormal lab results 08/05/19 08/05/19 08/05/19 Range/Units 08:00 08:00 08:18 WBC (4.4-10.8) k/cumm MPV (8.0-11.0) fL BUN 20 H (7-18) mg/dL Creatinine 1.63 H (0.70-1.30) mg/dL Glucose 110 H (70-100) mg/dL Calcium (8.5-10.1) mg/dL Ammonia < 10 L (11-32) umol/L TSH 0.24 L (0.36-3.74) uIU/mL Free T4 1.53 H (0.76-1.46) ng/dL Urine Protein Trace H (Negative) mg/dL Urine Ketones Trace H (Negative) mg/dL Urine Urobilinogen 1.0 H (Up TO 0.2) EU/dL 08/06/19 08/06/19 Range/Units 06:20 06:20 WBC 3.47 L D (4.4-10.8) k/cumm MPV 11.8 H (8.0-11.0) fL BUN (7-18) mg/dL Creatinine (0.70-1.30) mg/dL Glucose (70-100) mg/dL Calcium 8.4 L (8.5-10.1) mg/dL Ammonia (11-32) umol/L TSH (0.36-3.74) uIU/mL Free T4 (0.76-1.46) ng/dL Urine Protein (Negative) mg/dL Urine Ketones (Negative) mg/dL Urine Urobilinogen (Up TO 0.2) EU/dL Vital Signs Temperature 36.9 C 08/05/19 20:00 Temperature Source Tympanic 08/05/19 20:00 Pulse 57 L 08/06/19 04:00 Pulse Rhythm Regular 08/06/19 01:13 Pulse 58 L 08/06/19 04:00 Respiratory Rate 14 08/06/19 04:00 Respiratory Effort 08/06/19 01:13 Respiratory Depth Normal 08/06/19 01:13 Respiratory Pattern Normal 08/06/19 01:13 Blood Pressure 126/66 08/06/19 04:00 Blood Pressure Mean 81 08/06/19 04:00 Blood Pressure Position Sitting 08/05/19 13:09 Pulse Oximetry 94 L 08/06/19 04:00 Oxygen Delivery Method Room Air 08/05/19 20:00 Oxygen Flow Rate 0 08/05/19 20:00 Pain Level 0 08/05/19 20:00 Intake & Output 08/05/19 08/05/19 08/06/19 11:59 23:59 11:59 Intake Total 500 / 1075.298 5322.333 / 5430.293 7663 / 1120 Output Total 675 / 675 600 / 600 Balance 500 / 1238.333 738.333 / 1238.333 520 / 520 Weight 79.379 kg 79.379 kg Intake: IV 500 / 1433.333 933.333 / 4142.515 6295 / 1000 Oral 480 / 480 120 / 120 Output: Urine 675 / 675 600 / 600 Other: Urine Color Yellow Yellow Urine Appearance Clear Clear Urine Odor None Normal Comment voided 125cc's of dark yellow urine with sg of 1.020 and small ketones Voiding Methods Urinal Laboratory Results WBC 3.47 k/cumm (4.4-10.8) L D 08/06/19 06:20 RBC 4.73 m/cumm (4.50-6.00) 08/06/19 06:20 Hgb 13.6 g/dL (13.5-17.5) 08/06/19 06:20 Hct 42.2 % (40.0-50.0) 08/06/19 06:20 MCV 89.2 fL (80-95) 08/06/19 06:20 MCH 28.8 pg (27.0-33.0) 08/06/19 06:20 MCHC 32.2 g/dL (32.0-36.0) 08/06/19 06:20 RDW 13.8 % (11.8-14.1) 08/06/19 06:20 Plt Count 186 x1000/uL (130-400) 08/06/19 06:20 MPV 11.8 fL (8.0-11.0) H 08/06/19 06:20 Immature Gran % 0.0 08/06/19 06:20 Neutrophils % 46.7 08/06/19 06:20 Lymphocytes % 36.0 08/06/19 06:20 Monocytes % 11.0 08/06/19 06:20 Eosinophils % 6.3 08/06/19 06:20 Basophils % 0.0 08/06/19 06:20 Absolute Neutrophils 1.62 k/cumm (1.2-6.7) 08/06/19 06:20 Absolute Lymphocytes 1.25 k/cumm (1.2-3.4) 08/06/19 06:20 Absolute Monocytes 0.38 k/cumm (0.11-0.7) 08/06/19 06:20 Absolute Eosinophils 0.22 k/cumm (0.0-0.7) 08/06/19 06:20 Absolute Basophils 0.00 k/cumm (0.0-0.2) 08/06/19 06:20 PT 10.5 sec (9.3-11.0) 08/05/19 08:00 INR 1.0 (0.9-1.1) 08/05/19 08:00 APTT 25.1 sec (21.0-31.4) 08/05/19 08:00 VBG pH 7.40 (7.32-7.43) 08/05/19 08:00 VBG pCO2 51 mm/Hg (34-47) H 08/05/19 08:00 VBG pO2 24 mm/Hg (28-44) L 08/05/19 08:00 VBG HCO3 32 mmol/L (22-28) H 08/05/19 08:00 VBG Total CO2 28 mmol/L (22-29) 08/05/19 08:00 VBG O2 Saturation 41 % (70-80) L 08/05/19 08:00 VBG Base Excess 6.7 mmol/L (-3-3) H 08/05/19 08:00 Sodium 142 mmol/L (136-145) 08/06/19 06:20 Potassium 4.1 mmol/L (3.5-5.1) 08/06/19 06:20 Chloride 107 mmol/L (98-107) 08/06/19 06:20 Carbon Dioxide 28.5 mmol/L (21.0-32.0) 08/06/19 06:20 Anion Gap 6.5 mmol/L (3-11) 08/06/19 06:20 BUN 17 mg/dL (7-18) 08/06/19 06:20 Creatinine 1.17 mg/dL (0.70-1.30) 08/06/19 06:20 Estimated GFR/1.73 m2 >= 60.00 (mL/min/1.73m2) 08/06/19 06:20 Glucose 94 mg/dL (70-100) 08/06/19 06:20 Hemoglobin A1c 5.9 % (4.5-6.2) 08/06/19 06:20 Calcium 8.4 mg/dL (8.5-10.1) L 08/06/19 06:20 Magnesium 1.8 mg/dL (1.8-2.4) 08/06/19 06:20 Total Bilirubin 0.7 mg/dL (0.2-1.0) 08/05/19 08:00 AST 18 U/L (15-37) 08/05/19 08:00 ALT 28 U/L (16-63) 08/05/19 08:00 Alkaline Phosphatase 79 U/L (46-116) 08/05/19 08:00 Ammonia < 10 umol/L (11-32) L 08/05/19 08:00 Troponin I < 0.05 ng/mL (0.00-0.06) 08/05/19 08:00 Total Protein 7.6 g/dL (6.4-8.2) 08/05/19 08:00 Albumin 4.1 g/dL (3.4-5.0) 08/05/19 08:00 Triglycerides 77 mg/dL (30-150) 08/06/19 06:20 Total Cholesterol 136 mg/dL (50-200) 08/06/19 06:20 LDL Cholesterol, Calc 80 mg/dL 08/06/19 06:20 HDL Cholesterol 41 mg/dL (40-60) 08/06/19 06:20 TSH 0.24 uIU/mL (0.36-3.74) L 08/05/19 08:00 Free T4 1.53 ng/dL (0.76-1.46) H 08/05/19 08:00 Urine Color Yellow (Yellow) 08/05/19 08:18 Urine Clarity Clear (Clear) 08/05/19 08:18 Urine pH 7.0 (5-8) 08/05/19 08:18 Ur Specific [place] 1.020 (1.005-1.025) 08/05/19 08:18 Urine Protein Trace mg/dL (Negative) H 08/05/19 08:18 Urine Ketones Trace mg/dL (Negative) H 08/05/19 08:18 Urine Blood Negative (Negative) 08/05/19 08:18 Urine Nitrite Negative (Negative) 08/05/19 08:18 Urine Bilirubin Negative (Negative) 08/05/19 08:18 Urine Urobilinogen 1.0 EU/dL (Up TO 0.2) H 08/05/19 08:18 Ur Leukocyte Esterase Negative (Negative) 08/05/19 08:18 Urine RBC Negative (0-2) 08/05/19 08:18 Urine WBC 0-2 HPF (0-5) 08/05/19 08:18 Ur Epithelial Cells Negative HPF (Negative) 08/05/19 08:18 Urine Crystals Negative HPF (Negative) 08/05/19 08:18 Urine Bacteria Negative HPF (Negative) 08/05/19 08:18 Urine Casts Negative LPF (Negative) 08/05/19 08:18 Urine Mucus Trace (Negative) 08/05/19 08:18 Ur Culture Indicated? No 08/05/19 08:18 Urine Glucose Negative mg/dL (Negative) 08/05/19 08:18 Ethyl Alcohol < 3.0 mg/dL (<3) 08/05/19 08:00
[2019-08-06] MEDS: Aspirin E.C. 81 MG TABEC PO (08:28)
[2019-08-06] MEDS: Allopurinol 100 MG TAB PO (08:28)
[2019-08-06] MEDS: Multivitamin TAB 1 TAB PO (08:28)
--- NOTE | 2019-08-06 08:31 | OT.INIE ---
Occupational Therapy Notes Inpatient Occupational Therapy Evaluation Date: 08/06/19 Referring Doctor:Dr. Carbajal OT Orders: Eval and Tx Precautions: Fall, Standard PATIENT PROFILE/ADMITTING DIAGNOSIS: Pt is a 73 year old male who was admitted to the ICU at [facility] from the ER for a dx of CVA/TIA, dysarthria, dyslipidemia, with facial droop and expressive aphasia. Per pts EMR pt went to sleep around 11pm and when he woke up he was having difficulty speaking so he presented to the ER for further evaluation. Past Medical History: Medical History (Updated 08/05/19 @ 16:31 by Azeem Carbajal MD) Dyslipidemia (Acute) Gout (Chronic) History of renal cell carcinoma (Acute) Hypothyroidism (Chronic) Single kidney (Acute) Status post nephrectomy (Acute) Thyroid ca (Acute) Surgical History (Updated 08/05/19 @ 16:22 by Azeem Carbajal MD) History of thyroidectomy (Chronic) Social History/Home Situation: Pt lives in a private home with his . He reports that he has 3 stairs to enter his home with a railing on (B) sides. His bedroom is on the 2nd floor which he reports that he has no difficulty performing stairs at this time. He does not need any (A) at baseline and is totally (I) with all ADLs/IADLs. He has a tub/shower combination which he reports that he stands in without use of chair/bench. He has grab bars in place and performs his grooming routines standing at the sink. He is (I) with community mobility and drives himself. He is (I) with eating, no difficulty swallowing. Equipment owned/DME: Has a cane from past surgery, pt does not utilize at this time. SUBJECTIVE: Pt was sitting in bed with his at bedside. Pt states that he is feeling better, he notes that he could run a mile right now, but will use the word mile lightly. Pt reports that his only deficit that he can tell is that he cannot articulate words like he used too which is bothersome to him. He reports that functionally he feels that he is back to baseline and is able to do everything that he could do prior. OBJECTIVE: General Observation: IV (R) UE, telemetry, pt is pleasant and able to answer questions appropriately. Mental Status: A&Ox3 Pain: no c/o pain ROM: RUE AROM WNL L UE AROM WNL STRENGTH: RUE 5/5 throughout globally LUE 5/5 throughout globally FUNCTIONAL MOBILITY/ADLS: BATHING Performed prior to OT session Bathing UE Pt and nursing state pt is totally (I) and OT was able to assess functional ROM which is ideal techniques Bathing LE Pt and nursing state pt is totally (I) and OT was able to assess functional ROM which is ideal techniques DRESSING Dressing UE Performed prior to OT session with nursing, nursing reports that pt was (I) don and doffing hospital gown. Dressing LE Sitting in bed (I) with don and doffing (B) socks. GROOMING NT with OT present however per nursing pt (I) brushed his own teeth and has functional ROM/strength necessary to do so. TOILETING NT EATING (I) sitting in bed BALANCE: Static sitting Normal Dynamic Sitting Normal Static Standing NT Dynamic Standing NT SPECIAL TESTS: Daily Activity Limitations Standardized Measure [facility] AM -PAC ?6 clicks? Daily Activity Inpatient Short Form: Raw score: 24 Standardized score: 57.54 CMS score: 0.00% INFORMED CONSENT/EDUCATION: Pt instructed in purpose of OT Consult and plan of care. ASSESSMENT: Patient is a 73-year-old male referred to occupational therapy services with diagnosis of CVA/TIA, dysarthria, dyslipidemia with facial droop and expressive aphasia. OT went to see pt and perform consult in which pt was able to demonstrate (I) in his ADL/IADL routines. Functionally he is 5/5 UE strength with ROM WNL and able to perform functional activities without vc or (A) provided. Pt and OT discuss pts baseline level of function in which pt is presenting at his baseline in terms of ADLs/IADLs at this time. OT does recommend that pt return home when medically cleared per MD. OT does not anticipate any DME needs at this time. AMPAC score 24, CMS score 0.00% Patient is assessed as a Low 16943 complexity based on the following: History: See Above Examination: See Functional limitations as listed as listed above Presentation: Evolving Decision Making: AMPAC score 24, CMS score 0.00% GOALS N/A PLAN OF CARE/TREATMENT PLAN: Discharge pt from skilled OT services. DISCHARGE RECOMMENDATIONS Home when medically cleared per MD. TREATMENT TIME/MINUTES/CODES 18956, 20 minutes (08:10) Olive Kennedy, OTR/L [facility]
--- NOTE | 2019-08-06 11:02 | DSE_ITS ---
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: Status: Acute (2) Dysarthria: Status: Acute Discharge Plan Disposition Patient Disposition: HOME Condition: Stable Discharge Details Chief Complaint: CVA/TIA Clinical Impression: Stroke, Facial droop, Expressive aphasia Reason For Visit: ACUTE CVA Admit Date/Time: 08/05/19 11:50 Admit Provider: Azeem Carbajal Attending Provider: Azeem Carbajal Primary Care Provider: Tracey Chapin ED Provider: Sabino Esparza Hospital Course Hospital Course: Chief Complaint: Dysarthria, Dysphagia HPI: Very pleasant 73-year-old man with a past medical history significant for dyslipidemia, admitted from [facility] emergency department on 08/05 with a diagnosis of acute to subacute CVA. Mr. Luciano has a Past Medical History significant for dyslipidemia, gout, single kidney status secondary to prior renal cell CA s/p nephrectomy, and Thyroid Ca s/p thyroidectomy with subsequent hypothyroidism on replacement therapy. The patient is originally from [place], and lived in [place] for a number of years with brizuela spent locally in [place], prior to moving here permanently with his spouse. He went to bed at approximately 11 PM last night in his usual state of health. Upon awakening on the morning of admission he noted that he was having difficulty with speaking. He was able to speak and answer questions appropriately, but was significantly less fluent and articulate than his baseline. According to his he reported that he felt like his 'tongue had thickened'. He had no other complaints, and no other focal deficits. Initial work-up in the ED was remarkable for mild elevation in creatinine from his baseline, as well as a mild elevation in BUN. Otherwise his CBC, remainder of BMP, LFTs, and urinalysis were normal. Chest x-ray and initial CT of the head were both without acute abnormalities, but with a follow- up MRI of the brain showing a small area of restricted diffusion in the left parietal lobe, with findings consistent with an acute/subacute infarct. MRA of his brain was normal. The patient was at that time referred for admission for further evaluation and treatment. Hospital Course: (1) CVA (cerebral vascular accident): Evidence of an acute to subacute left parietal lobe infarct, exact duration of symptoms unknown as the patient was asleep - due to the unknown duration of symptoms thrombolytics were not considered. Findings consistent with CVA likely secondary to Small Vessel Disease. - Patient was on daily aspirin. Will be discharged on DAPT over the course of the next 30 days, followed by transition to clopidogrel only. - Given need for dual antiplatelet therapy, concurrent PPI was started for GI protection. - Telemetry without arrhythmias, and ECHO essentially normal. Will discharge with a [address], and outpatient Neurology follow-up. - HgA1C 5.9%, and LDL 80. Continue Statin therapy. - Unfortunately there is NO availability of speech therapy either in the [facility] or locally. Case Management is actively searching for a close and timely speech follow-up. Currently appears subjectively improved. Discussed thickened liquids. (2) Dyslipidemia: Given LDL and lipid profile plan on continuation of current dose Simvastatin. (3) HANNAH (acute kidney injury): Resolved with hydration. (4) Single kidney: Following nephrectomy for RCCa. HANNAH resolved. (5) Hypothyroidism: Currently on replacement therapy, with mildly low TSH and mildly free T4. Mr. Ortiz has a history of thyroid cancer, s/p thyroidectomy. Unsure if this mildly low TSH is a purposeful attempt at suppressive therapy or slight overreplacement. Recommend follow-up with PCP after discharge. For now continue current dose of replacement therapy. Home Meds and New Rx's Prescriptions: New clopidogrel [Plavix] 75 mg Tablet 75 mg PO Q24H Qty: 0 RF: 0 pantoprazole 40 mg Tablet,Delayed Release (Dr/Ec) 40 mg PO Q24H Qty: 0 RF: 0 Continued allopurinol 100 mg tablet 100 mg PO BID RF: 0 levothyroxine [Synthroid] 25 mcg tablet 175 mcg PO DAILY RF: 0 aspirin [Adult Aspirin Regimen] 81 mg tablet,delayed release (DR/EC) 81 mg PO DAILY RF: 0 multivitamin [Daily Multi-Vitamin] tablet 1 tab PO DAILY RF: 0 simvastatin 20 mg tablet 20 mg PO QPM RF: 0 vit D3-folic nuir-T8-R7-B12 2,000-800-0.32 unit-mcg-mg Tablet 1 tab PO DAILY RF: 0 Discharge Instructions Instructions: Ischemic Stroke (DC), Ischemic Stroke (GEN) Additional Instructions: Please see your PCP within 1 week, and Neurology with Dr. Van Stratten by mid to late September. Please see a local speech therapist as soon as able. Activity:: No Strenuous Activity Equipment/Supplies:: No Equipment Needed Diet:: Heart Healthy, low cholesterol Discharge Orders Discharge Orders: Discharge Order (Routine); Ordered 08/06/19 Ordered By: Azeem Carbajal DS: Summary Status at Discharge Functional status at discharge: independent ambulation Overall status at discharge: patient is back to baseline Mental Status: mental status grossly normal Speech and Movement: speech and movement normal Mood: congruent mood Affect: normal affect Exam Psych Mental Status: mental status grossly normal Speech and Movement: speech and movement normal Mood: congruent mood Affect: normal affect DS: Data Vitals/I&O Vitals and I&O: Vital Signs Temperature 36.9 C 08/06/19 07:44 Temperature Source Temporal Artery Scan 08/06/19 07:44 Pulse 54 L 08/06/19 07:44 Pulse Rhythm Regular 08/06/19 08:02 Pulse 64 08/06/19 10:10 Respiratory Rate 15 08/06/19 10:10 Respiratory Effort 08/06/19 08:02 Respiratory Depth Normal 08/06/19 08:02 Respiratory Pattern Normal 08/06/19 08:02 Blood Pressure 146/72 H 08/06/19 07:44 Blood Pressure Mean 91 08/06/19 07:44 Blood Pressure Position Sitting 08/05/19 13:09 Pulse Oximetry 97 08/06/19 07:44 Oxygen Delivery Method Room Air 08/06/19 07:44 Oxygen Flow Rate 0 08/06/19 07:44 Pain Level 0 08/06/19 07:44 Intake & Output 08/05/19 08/05/19 08/06/19 11:59 23:59 11:59 Intake Total 500 / 2444.035 7345.333 / 3235.391 4414 / 1480 Output Total 675 / 675 600 / 600 Balance 500 / 1238.333 738.333 / 1238.333 880 / 880 Weight 79.379 kg 79.379 kg Intake: IV 500 / 1433.333 933.333 / 7602.839 5078 / 1000 Oral 480 / 480 480 / 480 Output: Urine 675 / 675 600 / 600 Other: Urine Color Yellow Yellow Urine Appearance Clear Clear Urine Odor None Normal Comment voided 125cc's of dark yellow urine with sg of 1.020 and small ketones Voiding Methods Urinal Data Completed and Pending Completed studies during hospitalization [Text1]: Exam(s) a RAD:XR chest 2V PA & lateral EXAM: XR CHEST 2V PA LATERAL INDICATION: stroke like symptoms. COMPARISON: No exams were available for comparison TECHNIQUE: 2D digital imaging was performed. FINDINGS: The heart size and pulmonary vasculature are within normal limits. The lungs are clear. No effusion or pneumothorax is identified. There are calcified granulomas in the left upper lobe. Age-appropriate degenerative changes are present in the spine. IMPRESSION: No acute pulmonary process. --------- Exam(s) a CT:CT head wo EXAM: CT HEAD WO CLINICAL HISTORY: stroke like symptoms, R sided deficits w/ speech. TECHNIQUE: Imaging Protocol: Axial computed tomography images with coronal and sagittal reformatted images were created and reviewed COMPARISON: No exams were available for comparison FINDINGS: Ventricles and Extra axial spaces: Normal in size and morphology for the patient's age. Hemorrhage: None. Cerebral parenchyma: Subtle areas of decreased attenuation are present in the white matter most consistent with small vessel ischemic disease. Midline shift: None. Brainstem/Cerebellum: Normal. Calvarium: Normal. Visualized Paranasal sinuses/Mastoids: Clear. IMPRESSION: No acute intracranial process. Exam(s) a MRI:MR brain wo EXAM: MR BRAIN WO CLINICAL HISTORY: stroke, right facial and speech deficits. TECHNIQUE: Multiplanar multisequence MRI was performed. COMPARISON: CT HEAD WO from 08/05/2019 FINDINGS: The ventricles and sulci are consistent with the patient's age. There are areas of hyperintense signal seen in the white matter consistent with small vessel ischemic disease. The gradient images show no evidence of intracranial hemorrhage. The diffusion-weighted images show a small area of restricted diffusion in the left parietal lobe. This is consistent with a small acute/subacute infarct. There is no midline shift or mass effect. The ventricles are intact. The basilar cisterns are patent. The pituitary gland has a normal appearance. IMPRESSION: Small area of restricted diffusion in the left parietal lobe consistent with an acute/subacute infarct. --------- Exam(s) a MRI:MR angio brain wo CLINICAL HISTORY: stroke, right facial and speech deficits. TECHNIQUE: Multiplanar multisequence MRA of the brain was performed. IV Contrast: mL of Magnevist contrast administered. COMPARISON: None. FINDINGS: Carotid Arteries: Petrous: Normal. Cavernous: Normal. Cerebral: Normal. Middle Cerebral Arteries: Right: No aneurysm or significant stenosis. Left: No aneurysm or significant stenosis. Anterior Cerebral Arteries: Right: No aneurysm or significant stenosis. Left: No aneurysm or significant stenosis. Posterior cerebral arteries: Right: No aneurysm or significant stenosis. Left: No aneurysm or significant stenosis. Vertebral Arteries: Right: No aneurysm or significant stenosis. Left: No aneurysm or significant stenosis. . Basilar Artery: No aneurysm or significant stenosis. IMPRESSION: Normal MRA examination of the [place] of [place]. -------- Exam(s) a MRI:MR angio neck wo EXAM: MR ANGIO NECK WO CLINICAL HISTORY: stroke, right facial and speech deficits. TECHNIQUE: Multiplanar multisequence MRA of the Neck was performed. COMPARISON: No exams were available for comparison FINDINGS: Common Carotid: Right: Normal. Left: Normal. External Carotid: Right: Normal. Left: Normal. Internal Carotid: Right: Normal. Left: Normal. Vertebral Artery: Right: Normal. Left: Normal. The visualized paraspinal soft tissues are unremarkable. IMPRESSION: Normal MRA of the carotids. -------- xam(s) a US:US echocardiogram APPROVED REPORT EXAM: Comprehensive 2D, Doppler, and color-flow Echocardiogram Indications: acute CVA Left Ventricle The left ventricle is normal. Left ventricular systolic function is normal. The posterior wall thickness is normal. The septum is normal. There is normal LV segmental wall motion. Diastolic function is indeterminate LVEF is 65-70%. Right Ventricle The right ventricle is normal size. The right ventricular systolic function is normal. Atria The left atrium is mildly dilated. The right atrium size is normal. Aortic Valve Aortic valve is calcified. Aortic valve is trileaflet. No hemodynamically significant valvular aortic stenosis. No aortic regurgitation is present. Mitral Valve The mitral valve is normal in structure. Trace mitral regurgitation. Tricuspid Valve The tricuspid valve is normal in structure. Mild to moderate tricuspid regurgitation. TR V-max equals 2.93 m/s. peak gradient 34.4 mmHg Pulmonic Valve The pulmonary valve is normal in structure. There is no pulmonic valvular regurgitation. Great Vessels The aortic root is normal in size. The IVC is normal in size and collapses >50% with inspiration. Pericardium There is no pericardial effusion. 2D Dimensions IVSd 0.9 cm M: 0.6-1.2 PWd 0.9 cm M: 0.6 - 1.2 LVDd 4.6 cm M: 4.2 - 5.9 LVDs 3.0 cm M: 2.5 - 4.0 Aortic Root 3.0 cm M: 3.1 - 3.7 Left Atrium 4.1 cm M: 3.0 - 4.0 LVOT 2.0 cm (M/F) 1.5-2.5 LVEF (Alfredo's) 70.9 % M: 52 - 72 LV Volume Index 32.2 mL/m2 M: 34 - 74 FS 35.0 % LV Diastology E/A Ratio 0.9 MED E' 0.1 (<0.07 m/s) LV E/e MED 12.3 (>14) LAT E' 0.1 (<0.1 m/s) LV E/e LAT 7.0 (>14) Aortic Valve LVOT Peak Tawanda. 1.2 m/s LVOT Peak Gr. 6.0 mmHg LVOT Mean Gr. 3.3 mmHg LVOT VTI 0.3 m AO VTI 0.4 (0.18-0.25 m) ROGER (VTI) 1.1 (2.5-4.5 cm2) Mitral Valve MV A Velocity 0.9 (0.4-1.3 m/s) E/A Ratio 0.9 MV Decel. Time 257.1 (160-240 msec) MV PHT 74.6 msec MVA PHT 3.0 cm2 Tricuspid Valve TR P. Velocity 3.0 m/s TR P. Gradient 36.4 mmHg Conclusion Left Ventricle : The left ventricle is normal. The posterior wall thickness is normal. The septum is normal. Diastolic function is indeterminate Left ventricular systolic function is normal. There is normal LV segmental wall motion. LVEF is 65-70%. Right Ventricle : The right ventricle is normal size. The right ventricular systolic function is normal. Atria : The left atrium is mildly dilated. The right atrium size is normal. Aortic Valve : Aortic valve is calcified. Aortic valve is trileaflet. No aortic regurgitation is present. No hemodynamically significant valvular aortic stenosis. Mitral Valve : The mitral valve is normal in structure. Trace mitral regurgitation. Tricuspid Valve : The tricuspid valve is normal in structure. Mild to moderate tricuspid regurgitation. TR V-max equals 2.93 m/s. peak gradient 34.4 mmHg Great Vessels : The aortic root is normal in size. Pericardium : There is no pericardial effusion. There is no obvious cardiac source of emboli to explain CVA. Labs on day of discharge: Labs from last 24 hours 08/06/19 08/06/19 08/06/19 06:20 06:20 06:20 WBC 3.47 L D RBC 4.73 Hgb 13.6 Hct 42.2 MCV 89.2 MCH 28.8 MCHC 32.2 RDW 13.8 Plt Count 186 MPV 11.8 H Immature Gran % 0.0 Neutrophils % 46.7 Lymphocytes % 36.0 Monocytes % 11.0 Eosinophils % 6.3 Basophils % 0.0 Absolute Neutrophils 1.62 Absolute Lymphocytes 1.25 Absolute Monocytes 0.38 Absolute Eosinophils 0.22 Absolute Basophils 0.00 Sodium 142 Potassium 4.1 Chloride 107 Carbon Dioxide 28.5 Anion Gap 6.5 BUN 17 Creatinine 1.17 Estimated GFR/1.73 m2 >= 60.00 Glucose 94 Hemoglobin A1c 5.9 Calcium 8.4 L Magnesium 1.8 Triglycerides 77 Total Cholesterol 136 LDL Cholesterol, Calc 80 HDL Cholesterol 41 [facility] Medical History Dyslipidemia (Acute) Exposure to uranium (Acute) Gout (Chronic) History of renal cell carcinoma (Acute) Hypothyroidism (Chronic) Single kidney (Acute) Thyroid ca (Acute) Surgical History History of thyroidectomy (Chronic) Status post nephrectomy (Acute) Family History Mother Stroke Social History Smoking/Tobacco Use Status: Never Alcohol Intake: former Drug use: Never Substance use type: does not use Do you feel safe at home: Yes Do you feel safe in your relationship?: Yes Additional Social history: with 5 children, all grown. 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 No history of tobacco, and admits to social alcohol use only.
--- NOTE | 2019-08-06 11:25 | PDOC.CMIN ---
Care Management Initial Assess REASON FOR HOSPITALIZATION:: acute CVA PAST MEDICAL HISTORY/PAST SURGICAL HISTORY:: Medical: dyslipidemia, gout, H/O renal cell carcinoma, hypothyroidism, single kidney, thyroid Ca. Surgical: thyroidectomy, nephrectomy. PREVIOUS FUNCTIONAL STATUS/SOCIAL/FAMILY SUPPORTS:: He lives with his in thier home in [place]. They moved to [place] 2 yrs ago from [place] and really enjoy it here. He is usually active and independent. They hav 5 adult children who live throughout the country. 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 CURRENT FUNCTIONAL STATUS:: He is lying in bed in ICU. is present. He easily engages in discussion re plans. There is some notice of speech difficulty, but he can be understood. ADVANCE DIRECTIVES:: He does not have advance directive but has the information at home. Has patient been provided with information about the portal?: Yes Did the patient sign up for the portal?: No (already done) CODE STATUS:: Full Code INSURANCE COVERAGE / FINANCIAL ISSUES:: Medicare advantage plan through [facility] CURRENT HOME/COMMUNITY SERVICES/EQUIPMENT:: No services or equipment used. PRIMARY CARE PHYSICIAN:: Tracey Chapin MD POTENTIAL DISCHARGE NEEDS:: He needs OP ST evaluation and treatment. Since [facility] does not have this service currently, have tried contact with 3 providers in [facility], only one of which is still in area (Cora Quigley) and she could not see for 3-4 weeks. Also called [facility] and was able to get appt for 09/02/19, but patient will not be available that date as he plans to be in [place] then. Have reached out to [facility] and am awaiting call back. He will need follow-up with his PCP as directed. PATIENT/FAMILY EDUCATION NEEDS:: Review d/c instructions re meds and activity levels, discuss Ask me Now questions. ANTICIPATED BARRIERS TO DISCHARGE:: Only barrier to follow-up is availability of speech therapy services. No other problems identified. TRANSPORTATION:: via car with his . PLAN:: d/c home as per with follow-up with PCP as directed. CM will continue to try to set up OP ST evaluation.
--- NOTE | 2019-08-06 11:42 | PT.INIE ---
Date of service: 08/06/19 Time of Service: 10:15 PT Notes Inpatient Physical Therapy Evaluation Date: 08/06/2019 Referring Doctor: Azeem Carbajal MD PT Orders: PT CONSULT: Limited ability Precautions: Fall. Standard. Activity as tolerated. 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 Patient is diagnosed with CVA involving the left MCA, dysarthria, dyslipidemia and acute kidney injury. PMHX: Medical History (Updated 08/05/19 @ 16:31 by Azeem Carbajal MD) Dyslipidemia (Acute) Gout (Chronic) History of renal cell carcinoma (Acute) Hypothyroidism (Chronic) Single kidney (Acute) Status post nephrectomy (Acute) Thyroid CA (Acute) Surgical History (Updated 08/05/19 @ 16:22 by Azeem Carbajal MD) History of thyroidectomy (Chronic) Social History/Home Situation: Patient lives with in a two-story home in [place], [place] with two steps to enter with a railing on the R side. Equipment Owned/DME: None. Subjective: Patient does not complain of pain or discomfort. He reports trouble speaking and is waiting for an MUNICIPAL FIREFIGHTER consult. He is agreeable to PT and denies headache, lightheadedness, and dizziness. Objective: General Observation: Patient is seen laying supine in bed with HOB elevated with awake overnight monitor and IV in the R UE. Mental Status: Alert and oriented x 4 Pain: 0/10 ROM: Right Lower Extremity: Hip flexion WFL. Hip abduction WFL. Knee flexion WFL. Ankle dorsiflexion WFL. Ankle plantarflexion WFL. Left Lower Extremity: Hip flexion WFL. Hip abduction WFL. Knee flexion WFL. Ankle dorsiflexion WFL. Ankle plantarflexion WFL. Strength: Right Lower Extremity: Hip flexors 5/5. Hip abductors 5/5. Knee flexors 5/5. Knee extensors 5/5. Ankle dorsiflexors 5/5. Ankle plantarflexors 5/5. Left Lower Extremity:Hip flexors 5/5. Hip abductors 5/5. Knee flexors 5/5. Knee extensors 5/5. Ankle dorsiflexors 5/5. Ankle plantarflexors 5/5. Bed Mobility/Transfers: Rolling I Supine to sit I Sit to supine I Sit to stand I Stand to sit I Bed to chair Supervision Chair to bed Supervision Gait: Patient ambulated 150? with supervision and no assistive device demonstrating reciprocal gait pattern with no deviations. Balance: Static Sitting: Normal Dynamic Sitting: Normal Static Standing: Normal Dynamic Standing: Normal Special Tests: Mobility Limitations Standardized Measure [facility] 6 clicks Basic Mobility Inpatient Short Form: Raw Score: 24 [facility] Score: 0% 4-stage Balance Test: Patient completed all 4 stages with no assistance classifying him as low-risk for falls. Informed Consent/Education: Patient instructed in purpose of PT consult and plan of care. Assessment: Patient is a 73 year old male s/p acute left cerebral stroke. He presents with no functional deficits and complains of mild difficulty speaking. He lives with his in a two-story house and is confident in his abilities to function at home. His prognosis is good. Patient presents with clinical signs and symptoms consistent with current/admitting diagnoses. Patient is assessed as a 53627 moderate complexity based on the following: History: Patient is diagnosed with CVA involving the left MCA, dysarthria, dyslipidemia and acute kidney injury. Examination: Only requiring supervision assist for all transfer and ambulation task performance Presentation: Evolving Decision Makin moderate complexity Goals: Goals X1 week 1. Supine-Sit independent 2. Sit-Supine independent 3. Sit-Stand independent 4. Stand-Sit independent 5. Bed-Chair independent 6. Chair-Bed independent 7. Independent gait on level surface with use of least restrictive device for at least 300 feet without report of pain nor dyspnea 8. Independent stair negotiation while holding onto bilateral rails for at least 10 steps without report of pain nor dyspnea 9. Independent with home exercise program 10. Good static and dynamic standing balance/tolerance Plan of Care/Treatment Plan: 1-2x/day, 7 days/week x 1 week. Plan of care has been reviewed with the CORN CUTTER OPERATOR providing the service under Physical Therapy direction. Initiate Physical Therapy intervention for strengthening, bed mobility, transfers, gait, stairs, balance training, use of assistive device. DISCHARGE RECOMMENDATIONS: Patient is to be discharged under the care of his after being medically stable and after all of the above goals have been achieved. No equioment needs at this time. TREATMENT CODE/TIME: 57129 x 30 minutes beginning at 10:15 AM. Thank you very much for this referral. Rich Villagran [facility] With a supervision of: Teressa Moura PT, DPT, CLT [facility]
[2019-08-06] MEDS: Pantoprazole 40 MG TABCR PO (12:10)
[2019-08-06] MEDS: Clopidogrel 75 MG TAB PO (12:11)
--- NOTE | 2019-08-06 12:13 | CMDISCH_ITS ---
LACE Index Scoring Tool - Questions: Length of Stay (in days): 2 Acuity (Admit via E.D.?): Yes Comorbidities: Cerebrovascular Disease, Liver or Renal Disease E.D. Visits: 1 - Answers: Total Score: 11 Risk of Readmission: High Risk Care Management Discharge Reason for Hospitalization: acute CVA Discharge Plan: He is being discharged home with follow-up with PCP. CM has made referrals to [facility] and [facility] for OP ST services with request that they contact patient directly to make appt and patient will decide which appt he will keep. Patient/Family Education Needs: RN to review d/c instuctions re meds and activity levels. Patient able to verbalize reason for hospitalization and how to manage care at home. Services Needed at Discharge: Speech Therapy
--- NOTE | 2019-08-06 14:06 | INDS_ITS ---
Date of service: 08/06/19 Time of Service: 14:07 PT Notes Inpatient Physical Therapy Discharge Summary Dates: 08/06/2019 Dates of Service: 08/06/2019 only Referring Doctor: Azeem Carbajal MD PT Orders: PT CONSULT: Limited ability Precautions: Fall. Standard. Activity as tolerated. 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 Patient is diagnosed with CVA involving the left MCA, dysarthria, dyslipidemia and acute kidney injury. PMHX: Medical History (Updated 08/05/19 @ 16:31 by Azeem Carbajal MD) Dyslipidemia (Acute) Gout (Chronic) History of renal cell carcinoma (Acute) Hypothyroidism (Chronic) Single kidney (Acute) Status post nephrectomy (Acute) Thyroid CA (Acute) Surgical History (Updated 08/05/19 @ 16:22 by Azeem Carbajal MD) History of thyroidectomy (Chronic) Social History/Home Situation: Patient lives with in a two-story home in [place], [place] with two steps to enter with a railing on the R side. Equipment Owned/DME: None. Subjective: Patient is forward to going home this afternoon with . He continues to deny headache, chest pain, and dizziness. Objective: General Observation: Patient is seen laying supine in bed with HOB elevated with sas developer analyst and IV in the R UE. Mental Status: Alert and oriented x 4 ROM: Right Lower Extremity: Hip flexion WFL. Hip abduction WFL. Knee flexion WFL. Ankle dorsiflexion WFL. Ankle plantarflexion WFL. Left Lower Extremity: Hip flexion WFL. Hip abduction WFL. Knee flexion WFL. Ankle dorsiflexion WFL. Ankle plantarflexion WFL. Strength: Right Lower Extremity: Hip flexors 5/5. Hip abductors 5/5. Knee flexors 5/5. Knee extensors 5/5. Ankle dorsiflexors 5/5. Ankle plantarflexors 5/5. Left Lower Extremity:Hip flexors 5/5. Hip abductors 5/5. Knee flexors 5/5. Knee extensors 5/5. Ankle dorsiflexors 5/5. Ankle plantarflexors 5/5. Bed Mobility/Transfers: Rolling I Supine to sit I Sit to supine I Sit to stand I Stand to sit I Bed to chair I Chair to bed I Gait: Patient ambulated 150? + 30' with supervision and no assistive device demonstrating reciprocal gait pattern with no deviations. Balance: Static Sitting: Normal Dynamic Sitting: Normal Static Standing: Normal Dynamic Standing: Normal Special Tests: Mobility Limitations Standardized Measure [facility] 6 clicks Basic Mobility Inpatient Short Form: Raw Score: 24 [facility] Score: 0% Assessment: Afternoon treatment session consisted of level surface ambulation and activity to increase tolerance for functional mobility performance. Patient is a 73 year old male s/p acute left cerebral stroke. He presents with no functional deficits and complains of mild difficulty speaking. He lives with his in a two-story house and is confident in his abilities to function at home. His prognosis is good. Patient presents with clinical signs and symptoms consistent with current/admitting diagnoses. Goals: Goals X1 week 1. Supine-Sit independent MET 2. Sit-Supine independent MET 3. Sit-Stand independent MET 4. Stand-Sit independent MET 5. Bed-Chair independent MET 6. Chair-Bed independent MET 7. Independent gait on level surface with use of least restrictive device for at least 300 feet without report of pain nor dyspnea NOT MET 8. Independent stair negotiation while holding onto bilateral rails for at least 10 steps without report of pain nor dyspnea NOT MET 9. Independent with home exercise program MET 10. Good static and dynamic standing balance/tolerance MET DISCHARGE RECOMMENDATIONS: Patient is to be discharged under the care of his after being medically stable and after all of the above goals have been achieved. No equioment needs at this time. TREATMENT CODE/TIME: 78299 x 22 minutes beginning at 12:38 PM. Thank you very much for this referral. Teressa Moura PT, DPT, CLT [facility]
== END 2019-08-06 13:30 | disposition home or self-care (01) | DRG 65 ==
LOC: ER 12:08 → ICU 12:30
PROVIDERS: Admitting Provider Internal Medicine; Emergency Provider Student in an Organized Health Care Education/Training Program; PCP Nurse Practitioner Family; Visit Provider Internal Medicine
DX: I63.412 Cerebral infarction due to embolism of left middle cerebral artery (principal); N17.9 Acute kidney failure, unspecified; R47.01 Aphasia; R29.810 Facial weakness; I67.89 Other cerebrovascular disease; I07.1 Rheumatic tricuspid insufficiency; E78.5 Hyperlipidemia, unspecified; Z85.528 Personal history of other malignant neoplasm of kidney; Z90.5 Acquired absence of kidney; Z85.850 Personal history of malignant neoplasm of thyroid; E89.0 Postprocedural hypothyroidism; Z57.1 Occupational exposure to radiation; R47.1 Dysarthria and anarthria
CPT/HCPCS: 36415; 70544; 70547; 80048; 80053; 80061; 82805; 93005; 93270; 96365; 97165; 99222; 99223; 99232; 99233; 99238; 99285; 70450; 70551; 71046; 80320; 81003; 81015; 82140; 83036; 83735; 84439; 84443; 84484; 85025; 85610; 85730; 93010; 93306; J1200; J1644; J2930

== ENCOUNTER 2019-09-14 14:33 | Outpatient (CLI) | payer OTHER, SELFPAY ==
[2019-09-14 15:20] LABS: Abs Immature Grans 0.01 k/cumm (0.0-0.09); Absolute Eosinophil Count 0.31 k/cumm (0.0-0.7); Absolute Lymphocyte Count 1.14 k/cumm (1.2-3.4); Absolute Monocyte Count 0.53 k/cumm (0.11-0.7); Absolute Neutrophil Count 3.78 k/cumm (1.2-6.7); Eosinophils % 5.4; HCT 43.5 % (40.0-50.0); HGB 14.2 g/dL (13.5-17.5); Immature Grans % 0.2; Lymphocytes % 19.8; Mean Corp. HGB Concentration 32.6 g/dL (32.0-36.0); Mean Corpuscular Hemoglobin 28.9 pg (27.0-33.0); Mean Corpuscular Volume 88.4 fL (80-95); Mean Platelet Volume 11.3 fL (8.0-11.0); Monocytes % 9.2; Neutrophils % 65.4; Platelet Count 204 x1000/uL (130-400); RBC 4.92 m/cumm (4.50-6.00); RBC Distribution Width 13.6 % (11.8-14.1); White Blood Cell Count 5.77 k/cumm (4.4-10.8)
[2019-09-14 15:42] LABS: Prothrombin Time 10.5 sec (9.3-11.0)
[2019-09-14 16:15] LABS: ALT 28 U/L (16-63); AST 19 U/L (15-37); Albumin 3.9 g/dL (3.4-5.0); Alkaline Phosphatase 79 U/L (46-116); Anion Gap 8.9 mmol/L (3-11); BUN 18 mg/dL (7-18); Bilirubin, Total 0.4 mg/dL (0.2-1.0); CO2 28.1 mmol/L (21.0-32.0); CREATININE 1.34 mg/dL (0.70-1.30); Chloride 106 mmol/L (98-107); Estimated GFR 52.25 (mL/min/1.73m2); Glucose 121 mg/dL (70-100); Sodium 143 mmol/L (136-145); TSH (W/Ref FT4) 0.59 uIU/mL (0.36-3.74); Total Protein 6.7 g/dL (6.4-8.2)
[2019-09-18 15:22] LABS: PSA, Screening <0.1 ng/mL (0.0-6.5)
== END 2019-09-14 14:53 ==
PROVIDERS: PCP Family Medicine; Visit Provider Family Medicine
DX: C73 Malignant neoplasm of thyroid gland (principal); E78.5 Hyperlipidemia, unspecified; N18.3 Chronic kidney disease, stage 3 (moderate); Z12.5 Encounter for screening for malignant neoplasm of prostate; Z80.42 Family history of malignant neoplasm of prostate
CPT/HCPCS: 36415; 80053; 84153; 84443; 85025; 85610

== ENCOUNTER → 2019-09-17 13:44 | Outpatient (BNVA) | payer OTHER, SELFPAY | PROVIDERS: PCP Family Medicine; Referring Provider Family Medicine; Visit Provider Psychiatry & Neurology Neurology | DX: I63.312 Cerebral infarction due to thrombosis of left middle cerebral artery (principal); R47.1 Dysarthria and anarthria; Z92.3 Personal history of irradiation; J45.909 Unspecified asthma, uncomplicated | CPT/HCPCS: 99214 ==

== ENCOUNTER 2019-12-21 11:50 | Outpatient (REF) | payer OTHER, SELFPAY ==
[2019-12-21 19:27] LABS: HCT 43.3 % (40.0-50.0); HGB 14.2 g/dL (13.5-17.5); Mean Corp. HGB Concentration 32.8 g/dL (32.0-36.0); Mean Corpuscular Hemoglobin 29.5 pg (27.0-33.0); Mean Corpuscular Volume 89.8 fL (80-95); Mean Platelet Volume 11.6 fL (8.0-11.0); Platelet Count 223 x1000/uL (130-400); RBC 4.82 m/cumm (4.50-6.00); RBC Distribution Width 13.3 % (11.8-14.1); White Blood Cell Count 4.71 k/cumm (4.4-10.8)
[2019-12-21 19:35] LABS: Anion Gap 10.2 mmol/L (3-11); BUN 20 mg/dL (7-18); CO2 26.8 mmol/L (21.0-32.0); CREATININE 1.47 mg/dL (0.70-1.30); Calcium 8.6 mg/dL (8.5-10.1); Chloride 105 mmol/L (98-107); Estimated GFR 46.96 (mL/min/1.73m2); Glucose 148 mg/dL (74-106); Potassium 4.2 mmol/L (3.5-5.1); Sodium 142 mmol/L (136-145)
[2019-12-21 19:55] LABS: Hemoglobin A1C 6.1 % (3.8-5.6)
== END 2019-12-21 12:10 ==
LOC: NCHCN 11:50
PROVIDERS: PCP Family Medicine; Visit Provider Family Medicine
DX: R53.83 Other fatigue (principal); R73.09 Other abnormal glucose; Z86.79 Personal history of other diseases of the circulatory system
CPT/HCPCS: 80048; 85027; 83036